=== PATIENT | male | born 1965 | race Caucasian/White ===

== ENCOUNTER 2017-07-17 14:54 | Emergency (ER) | payer MEDICARE, MEDICAID ==
[~2017-07-17] VITALS: Ht 180.3 cm; Wt 101.8 kg
[2017-07-17] MEDS ORDERED: TRIH2TAB3 PO (15:06)
[2017-07-17] MEDS ORDERED: LORA0.5T2 PO (15:06)
[2017-07-17] MEDS ORDERED: ASPI-556 PO (15:06)
[2017-07-17] MEDS ORDERED: METF500T4 PO (15:06)
[2017-07-17] MEDS ORDERED: METO-558 PO (15:06)
[2017-07-17] MEDS ORDERED: ADV250 IH (15:06)
[2017-07-17] MEDS ORDERED: HALO10 PO (15:06)
[2017-07-17] MEDS ORDERED: MIRT30 PO (15:06)
[2017-07-17] MEDS ORDERED: PRAZ2 PO (15:06)
[2017-07-17] MEDS ORDERED: GABA-529 PO (15:06)
[2017-07-17] MEDS ORDERED: AMANL PO (15:06)
[2017-07-17] MEDS ORDERED: SIMV-259 PO (15:06)
[2017-07-17] MEDS ORDERED: OMEP20 PO (15:06)
[2017-07-17 15:18] LABS: GLUCOSE,POINT OF CARE 143 MG/DL (70-110)
[2017-07-17 16:16] VITALS: BP 125/69
[2017-07-17] MEDS ORDERED: AMAN100C12 PO (16:38)
[2017-07-17] MEDS ORDERED: IBUPROFEN 600 MG TABLET PO ONE (16:45)
== END 2017-07-17 17:02 | disposition home or self-care (01) ==
LOC: EMS 14:55
DX: M79.662 Pain in left lower leg (principal); E11.9 Type 2 diabetes mellitus without complications
CPT/HCPCS: 82962; 93971; 99284

== ENCOUNTER 2018-09-30 12:55 | Inpatient (IN) | payer MEDICARE, MEDICAID ==
[~2018-09-30] VITALS: Ht 177.8 cm; Wt 79.4 kg
[~2018-09-30 12:55] MED LIST: ADV250 IH; AMAN100C12 PO; ASPI-556 PO; GABA-529 PO; HALO10 PO; LORA0.5T2 PO; METF-960 PO; METO-558 PO; MIRT30 PO; OMEP20 PO; PRAZ2 PO; SIMV-259 PO; TRIH2TAB3 PO
[2018-09-30 13:43] VITALS: BP 129/79
[2018-09-30] MEDS ORDERED: TUBERCULIN, PURIFIED PROTEIN DERIVATIVE 5 TU/0.1 ML SYG ID ONE (13:45)
[2018-09-30] MEDS ORDERED: PROMETHAZINE HCL 25 MG TABLET PO PRN (13:45)
[2018-09-30] MEDS ORDERED: GuaiFENesin/D-METHORPHAN [SUGAR-FREE] 200-20MG/10 ML SYRUP UDCUP PO PRN (13:45)
[2018-09-30] MEDS ORDERED: HydrOXYzine PAMOATE 50 MG CAPSULE PO PRN (13:45)
[2018-09-30] MEDS ORDERED: LOPERAMIDE HCL 2 MG CAPSULE PO PRN (13:45)
[2018-09-30] MEDS ORDERED: MAGNESIUM HYDROXIDE SUSPENSION 30 ML UDCUP PO PRN (13:45)
[2018-09-30 16:00] VITALS: BP 130/67
[2018-09-30] MEDS ORDERED: INSULIN LISPRO 100 UNITS/ML SQ PRN (16:45)
[2018-09-30] MEDS ORDERED: GLUCAGON,HUMAN RECOMBINANT 1 MG VIAL IM PRN (16:45)
[2018-09-30] MEDS: LORazepam 2 MG TABLET PO PRN (17:45)
[2018-09-30] MEDS: GABAPENTIN 100 MG CAPSULE PO SCH (17:47)
[2018-09-30] MEDS: THIAMINE HCL 100 MG TABLET PO SCH (17:47)
[2018-09-30] MEDS: MetFORMIN HCL 500 MG TABLET PO SCH (17:47)
[2018-09-30] MEDS: TRIHEXYPHENIDYL HCL 2 MG TABLET PO SCH (18:32)
[2018-09-30] MEDS: PRAZOSIN HCL 1 MG CAPSULE PO SCH (20:49)
[2018-09-30] MEDS: SIMVASTATIN 10 MG TABLET PO SCH (20:49)
[2018-09-30] MEDS: MIRTAZAPINE 15 MG TABLET PO SCH (20:50)
[2018-09-30] MEDS: ZOLPIDEM TARTRATE 10 MG TABLET PO PRN (20:50)
[2018-09-30] MEDS ORDERED: HALOPERIDOL 10 MG TABLET PO SCH (21:00)
[2018-10-01] MEDS: MetFORMIN HCL 500 MG TABLET PO SCH ×2 (06:34→16:44)
[2018-10-01 06:37] LABS: GLUCOMETER DEV NAME(LOC) BV3N.; GLUCOSE,POINT OF CARE 92 MG/DL (70-110)
[2018-10-01 07:02] VITALS: BP 129/75
[2018-10-01 07:52] LABS: BASOPHILS % (AUTO) 0.5 % (0.0-2.0); HEMATOCRIT 39.3 % (41-53); HEMOGLOBIN 13.1 g/dL (13.5-17.5); LYMPHOCYTES # (AUTO) 2.2 K/uL (1.0-4.8); LYMPHOCYTES % (AUTO) 36.3 % (22.0-44.0); MEAN CORPUSCULAR HEMOGLOBIN 30.4 pg (26.0-34.0); MEAN CORPUSCULAR HGB CONC 33.3 G/dL (31.0-37.0); MEAN CORPUSCULAR VOLUME 91 fL (80-100); MONOCYTES # (AUTO) 0.8 K/uL (0.1-1.0); MONOCYTES % (AUTO) 12.6 % (2.0-9.0); NEUTROPHILS # (AUTO) 2.9 K/uL (1.8-7.7); NEUTROPHILS % (AUTO) 47.6 % (40.0-70.0); PLATELET COUNT (AUTO) 141 K/uL (150-450); RED BLOOD CELL COUNT(AUTO) 4.29 MIL/uL (4.50-5.90); RED CELL DISTRIBUTION WIDTH 15.2 % (11.5-14.5)
[2018-10-01 07:58] LABS: HEMOGLOBIN A1C 5.6 % (4.5-6.2)
[2018-10-01 08:24] LABS: ALANINE AMINOTRANSFERASE 20 U/L (12-78); ALBUMIN 3.1 g/dL (3.4-5.0); ALKALINE PHOSPHATASE 78 U/L (46-116); ANION GAP 5 mmol/L (8-16); ASPARTATE AMINOTRANSFERASE 20 U/L (15-37); BILIRUBIN,TOTAL 0.5 mg/dL (0.1-1.0); CALCIUM, TOTAL 8.3 mg/dL (8.8-10.5); CARBON DIOXIDE 28 mmol/L (22-29); CHLORIDE 108 mmol/L (98-107); CHOL/HDL RATIO 2.4 (4.2-7.3); CHOLESTEROL 101 mg/dL (131-200); FREE T4 (FREE THYROXINE) 0.91 ng/dL (0.76-1.46); GLOMERULAR FILTR. RATE CALC > 60 mL/min (>60); GLUCOSE,RANDOM 79 mg/dL (70-110); HDL CHOLESTEROL 42 mg/dL (40-60); LDL CHOL (CALC.) 50 mg/dL (0-130); POTASSIUM 3.6 mmol/L (3.5-5.1); SODIUM SERUM 141 mmol/L (136-145); THYROID STIMULATING HORMONE 1.21 uIU/mL (0.36-3.74); TOTAL PROTEIN, SERUM 5.7 g/dL (6.4-8.2); TRIGLYCERIDES 47 mg/dL (15-150); UREA NITROGEN, BLOOD 13 mg/dL (7-18)
[2018-10-01 08:56] VITALS: BP 119/70
[2018-10-01] MEDS ORDERED: AMANTADINE HCL 100 MG CAPSULE PO SCH (09:00)
[2018-10-01] MEDS: ASPIRIN 81 MG CHEWABLE TABLET PO SCH (10:18)
[2018-10-01] MEDS: GABAPENTIN 100 MG CAPSULE PO SCH ×3 (10:18→16:44)
[2018-10-01] MEDS: FLUTICASONE/VILANTEROL 200-25 MCG/INH INHALER [14] IH SCH (10:18)
[2018-10-01] MEDS: FOLIC ACID 1 MG TABLET PO SCH (10:18)
[2018-10-01] MEDS: TRIHEXYPHENIDYL HCL 2 MG TABLET PO SCH (10:18)
[2018-10-01] MEDS: NALTREXONE HCL 50 MG TABLET PO SCH (10:18)
[2018-10-01] MEDS: METOPROLOL SUCCINATE 50 MG ER TABLET PO SCH (10:19)
[2018-10-01] MEDS: MULTIVITAMINS WITH MINERALS, THERAPEUTIC TABLET PO SCH (10:19)
[2018-10-01] MEDS: THIAMINE HCL 100 MG TABLET PO SCH ×2 (10:19→16:44)
[2018-10-01] MEDS: NICOTINE 21 MG/24 HOUR PATCH TD SCH (13:32)
[2018-10-01 16:00] VITALS: BP 115/66
[2018-10-01] MEDS: TRIHEXYPHENIDYL HCL 5 MG TABLET PO SCH (16:47)
[2018-10-01 17:04] LABS: GLUCOMETER DEV NAME(LOC) BV3N.; GLUCOSE,POINT OF CARE 104 MG/DL (70-110)
[2018-10-01] MEDS: PRAZOSIN HCL 1 MG CAPSULE PO SCH (21:05)
[2018-10-01] MEDS: SIMVASTATIN 10 MG TABLET PO SCH (21:05)
[2018-10-01] MEDS: HALOPERIDOL 10 MG TABLET PO SCH (21:05)
[2018-10-01] MEDS: DIVALPROEX SODIUM 500 MG ER TABLET PO SCH (21:05)
[2018-10-01] MEDS: MIRTAZAPINE 15 MG TABLET PO SCH (21:05)
[2018-10-02 04:30] VITALS: BP 118/72
[2018-10-02] MEDS: MetFORMIN HCL 500 MG TABLET PO SCH ×2 (06:49→16:51)
[2018-10-02 08:03] VITALS: BP 113/73
[2018-10-02] MEDS: ASPIRIN 81 MG CHEWABLE TABLET PO SCH (08:21)
[2018-10-02] MEDS: METOPROLOL SUCCINATE 50 MG ER TABLET PO SCH (08:21)
[2018-10-02] MEDS: NALTREXONE HCL 50 MG TABLET PO SCH (08:21)
[2018-10-02] MEDS: TRIHEXYPHENIDYL HCL 5 MG TABLET PO SCH ×3 (08:22→16:51)
[2018-10-02] MEDS: FOLIC ACID 1 MG TABLET PO SCH (08:22)
[2018-10-02] MEDS: THIAMINE HCL 100 MG TABLET PO SCH ×2 (08:22→16:51)
[2018-10-02] MEDS: MULTIVITAMINS WITH MINERALS, THERAPEUTIC TABLET PO SCH (08:22)
[2018-10-02] MEDS: GABAPENTIN 100 MG CAPSULE PO SCH ×3 (08:22→16:51)
[2018-10-02] MEDS: NICOTINE 21 MG/24 HOUR PATCH TD SCH (08:23)
[2018-10-02] MEDS: FLUTICASONE/VILANTEROL 200-25 MCG/INH INHALER [14] IH SCH (08:23)
[2018-10-02] MEDS: MAG HYDROX/AL HYDROX/SIMETH ES 30 ML SUSPENSION UDCUP PO PRN (14:55)
[2018-10-02 16:00] VITALS: BP 114/65
[2018-10-02] MEDS: LORazepam 2 MG TABLET PO PRN (16:52)
[2018-10-02 17:19] LABS: GLUCOMETER DEV NAME(LOC) BV3N.; GLUCOSE,POINT OF CARE 89 MG/DL (70-110)
[2018-10-02] MEDS: PRAZOSIN HCL 1 MG CAPSULE PO SCH (20:50)
[2018-10-02] MEDS: DIVALPROEX SODIUM 500 MG ER TABLET PO SCH (20:50)
[2018-10-02] MEDS: MIRTAZAPINE 15 MG TABLET PO SCH (20:50)
[2018-10-02] MEDS: HALOPERIDOL 10 MG TABLET PO SCH (20:50)
[2018-10-02] MEDS: SIMVASTATIN 10 MG TABLET PO SCH (20:50)
[2018-10-03 04:30] VITALS: BP 118/68
[2018-10-03 06:15] LABS: GLUCOMETER DEV NAME(LOC) BV3N.; GLUCOSE,POINT OF CARE 73 MG/DL (70-110)
[2018-10-03] MEDS: MetFORMIN HCL 500 MG TABLET PO SCH ×2 (06:26→16:22)
[2018-10-03 08:18] VITALS: BP 112/66
[2018-10-03] MEDS: GABAPENTIN 100 MG CAPSULE PO SCH ×3 (09:05→16:22)
[2018-10-03] MEDS: NALTREXONE HCL 50 MG TABLET PO SCH (09:05)
[2018-10-03] MEDS: THIAMINE HCL 100 MG TABLET PO SCH ×2 (09:05→16:22)
[2018-10-03] MEDS: TRIHEXYPHENIDYL HCL 5 MG TABLET PO SCH ×3 (09:05→16:22)
[2018-10-03] MEDS: NICOTINE 21 MG/24 HOUR PATCH TD SCH (09:05)
[2018-10-03] MEDS: FOLIC ACID 1 MG TABLET PO SCH (09:05)
[2018-10-03] MEDS: METOPROLOL SUCCINATE 50 MG ER TABLET PO SCH (09:05)
[2018-10-03] MEDS: ASPIRIN 81 MG CHEWABLE TABLET PO SCH (09:05)
[2018-10-03] MEDS: MULTIVITAMINS WITH MINERALS, THERAPEUTIC TABLET PO SCH (09:05)
[2018-10-03] MEDS: FLUTICASONE/VILANTEROL 200-25 MCG/INH INHALER [14] IH SCH (09:06)
[2018-10-03 16:14] VITALS: BP 110/61
[2018-10-03] MEDS: LORazepam 2 MG TABLET PO PRN (16:22)
[2018-10-03] MEDS: HALOPERIDOL 5 MG TABLET PO PRN (16:22)
[2018-10-03 17:09] LABS: GLUCOMETER DEV NAME(LOC) BV3N.; GLUCOSE,POINT OF CARE 114 MG/DL (70-110)
[2018-10-03] MEDS: HALOPERIDOL 10 MG TABLET PO SCH (20:20)
[2018-10-03] MEDS: DIVALPROEX SODIUM 500 MG ER TABLET PO SCH (20:20)
[2018-10-03] MEDS: MIRTAZAPINE 15 MG TABLET PO SCH (20:20)
[2018-10-03] MEDS: PRAZOSIN HCL 1 MG CAPSULE PO SCH (20:20)
[2018-10-03] MEDS: SIMVASTATIN 10 MG TABLET PO SCH (20:21)
[2018-10-03] MEDS: ZOLPIDEM TARTRATE 10 MG TABLET PO PRN (20:21)
[2018-10-03] MEDS: MAG HYDROX/AL HYDROX/SIMETH ES 30 ML SUSPENSION UDCUP PO PRN (21:01)
[2018-10-04 06:20] VITALS: BP 101/69
[2018-10-04] MEDS: MetFORMIN HCL 500 MG TABLET PO SCH ×2 (06:37→16:44)
[2018-10-04 08:41] VITALS: BP 112/79
[2018-10-04] MEDS: NICOTINE 21 MG/24 HOUR PATCH TD SCH (08:52)
[2018-10-04] MEDS: THIAMINE HCL 100 MG TABLET PO SCH ×2 (08:53→16:44)
[2018-10-04] MEDS: MULTIVITAMINS WITH MINERALS, THERAPEUTIC TABLET PO SCH (08:53)
[2018-10-04] MEDS: FOLIC ACID 1 MG TABLET PO SCH (08:53)
[2018-10-04] MEDS: TRIHEXYPHENIDYL HCL 5 MG TABLET PO SCH ×3 (08:53→16:44)
[2018-10-04] MEDS: GABAPENTIN 100 MG CAPSULE PO SCH ×3 (08:53→16:44)
[2018-10-04] MEDS: NALTREXONE HCL 50 MG TABLET PO SCH (08:53)
[2018-10-04] MEDS: ASPIRIN 81 MG CHEWABLE TABLET PO SCH (08:53)
[2018-10-04] MEDS: METOPROLOL SUCCINATE 50 MG ER TABLET PO SCH (08:54)
[2018-10-04] MEDS: FLUTICASONE/VILANTEROL 200-25 MCG/INH INHALER [14] IH SCH (08:54)
[2018-10-04 13:50] VITALS: BP 112/65
[2018-10-04] MEDS: ACETAMINOPHEN 325 MG TABLET PO PRN (13:50)
[2018-10-04 16:00] VITALS: BP 114/67
[2018-10-04 16:54] LABS: GLUCOMETER DEV NAME(LOC) BV3N.; GLUCOSE,POINT OF CARE 95 MG/DL (70-110)
[2018-10-04] MEDS: LORazepam 2 MG TABLET PO PRN (18:13)
[2018-10-04] MEDS: MIRTAZAPINE 15 MG TABLET PO SCH (20:03)
[2018-10-04] MEDS: HALOPERIDOL 10 MG TABLET PO SCH (20:03)
[2018-10-04] MEDS: DIVALPROEX SODIUM 500 MG ER TABLET PO SCH (20:03)
[2018-10-04] MEDS: PRAZOSIN HCL 1 MG CAPSULE PO SCH (20:04)
[2018-10-04] MEDS: SIMVASTATIN 10 MG TABLET PO SCH (20:04)
[2018-10-05 06:09] LABS: GLUCOMETER DEV NAME(LOC) BV3N.; GLUCOSE,POINT OF CARE 78 MG/DL (70-110)
[2018-10-05] MEDS: MetFORMIN HCL 500 MG TABLET PO SCH ×2 (06:18→16:07)
[2018-10-05 07:10] VITALS: BP 110/65
[2018-10-05] MEDS: FOLIC ACID 1 MG TABLET PO SCH (09:04)
[2018-10-05] MEDS: FLUTICASONE/VILANTEROL 200-25 MCG/INH INHALER [14] IH SCH (09:04)
[2018-10-05] MEDS: NALTREXONE HCL 50 MG TABLET PO SCH (09:04)
[2018-10-05] MEDS: ASPIRIN 81 MG CHEWABLE TABLET PO SCH (09:04)
[2018-10-05] MEDS: GABAPENTIN 100 MG CAPSULE PO SCH ×3 (09:04→16:07)
[2018-10-05] MEDS: TRIHEXYPHENIDYL HCL 5 MG TABLET PO SCH ×3 (09:04→16:07)
[2018-10-05] MEDS: METOPROLOL SUCCINATE 50 MG ER TABLET PO SCH (09:04)
[2018-10-05] MEDS: MULTIVITAMINS WITH MINERALS, THERAPEUTIC TABLET PO SCH (09:05)
[2018-10-05] MEDS: NICOTINE 21 MG/24 HOUR PATCH TD SCH (09:05)
[2018-10-05] MEDS: LORazepam 2 MG TABLET PO PRN ×2 (09:05→16:07)
[2018-10-05] MEDS: THIAMINE HCL 100 MG TABLET PO SCH ×2 (09:05→16:07)
[2018-10-05 09:28] VITALS: BP 113/66
[2018-10-05] MEDS: ACETAMINOPHEN 325 MG TABLET PO PRN (10:09)
[2018-10-05] MEDS: HALOPERIDOL 5 MG TABLET PO PRN (16:07)
[2018-10-05 16:25] VITALS: BP 108/65
[2018-10-05 16:29] LABS: GLUCOMETER DEV NAME(LOC) BV3N.; GLUCOSE,POINT OF CARE 116 MG/DL (70-110)
[2018-10-05] MEDS: SIMVASTATIN 10 MG TABLET PO SCH (20:16)
[2018-10-05] MEDS: DIVALPROEX SODIUM 500 MG ER TABLET PO SCH (20:16)
[2018-10-05] MEDS: HALOPERIDOL 10 MG TABLET PO SCH (20:16)
[2018-10-05] MEDS: PRAZOSIN HCL 1 MG CAPSULE PO SCH (20:16)
[2018-10-05] MEDS: MIRTAZAPINE 15 MG TABLET PO SCH (20:16)
[2018-10-05] MEDS: ZOLPIDEM TARTRATE 10 MG TABLET PO PRN (20:16)
[2018-10-05] MEDS: MAG HYDROX/AL HYDROX/SIMETH ES 30 ML SUSPENSION UDCUP PO PRN (21:25)
[2018-10-06 06:01] VITALS: BP 116/68
[2018-10-06] MEDS: MetFORMIN HCL 500 MG TABLET PO SCH ×2 (06:24→16:23)
[2018-10-06 06:29] LABS: GLUCOMETER DEV NAME(LOC) BV3N.; GLUCOSE,POINT OF CARE 84 MG/DL (70-110)
[2018-10-06 08:26] VITALS: BP 102/62
[2018-10-06] MEDS: NALTREXONE HCL 50 MG TABLET PO SCH (08:33)
[2018-10-06] MEDS: MULTIVITAMINS WITH MINERALS, THERAPEUTIC TABLET PO SCH (08:33)
[2018-10-06] MEDS: TRIHEXYPHENIDYL HCL 5 MG TABLET PO SCH ×3 (08:33→16:23)
[2018-10-06] MEDS: METOPROLOL SUCCINATE 50 MG ER TABLET PO SCH (08:34)
[2018-10-06] MEDS: FLUTICASONE/VILANTEROL 200-25 MCG/INH INHALER [14] IH SCH (08:34)
[2018-10-06] MEDS: GABAPENTIN 100 MG CAPSULE PO SCH (08:34)
[2018-10-06] MEDS: THIAMINE HCL 100 MG TABLET PO SCH ×2 (08:34→16:23)
[2018-10-06] MEDS: NICOTINE 21 MG/24 HOUR PATCH TD SCH (08:34)
[2018-10-06] MEDS: FOLIC ACID 1 MG TABLET PO SCH (08:34)
[2018-10-06] MEDS: ASPIRIN 81 MG CHEWABLE TABLET PO SCH (08:34)
[2018-10-06] MEDS: HALOPERIDOL 5 MG TABLET PO PRN (16:23)
[2018-10-06] MEDS: LORazepam 2 MG TABLET PO PRN ×2 (16:23→20:25)
[2018-10-06 16:40] LABS: GLUCOMETER DEV NAME(LOC) BV3N.; GLUCOSE,POINT OF CARE 107 MG/DL (70-110)
[2018-10-06 16:48] VITALS: BP 103/72
[2018-10-06] MEDS: SIMVASTATIN 10 MG TABLET PO SCH (20:20)
[2018-10-06] MEDS: PRAZOSIN HCL 1 MG CAPSULE PO SCH (20:20)
[2018-10-06] MEDS: HALOPERIDOL 10 MG TABLET PO SCH (20:20)
[2018-10-06] MEDS: GABAPENTIN 300 MG CAPSULE PO SCH (20:20)
[2018-10-06] MEDS: DIVALPROEX SODIUM 500 MG ER TABLET PO SCH (20:21)
[2018-10-06] MEDS: MIRTAZAPINE 15 MG TABLET PO SCH (20:22)
[2018-10-06] MEDS: ZOLPIDEM TARTRATE 10 MG TABLET PO PRN (20:25)
[2018-10-07 06:09] LABS: GLUCOMETER DEV NAME(LOC) BV3N.; GLUCOSE,POINT OF CARE 90 MG/DL (70-110)
[2018-10-07] MEDS: MetFORMIN HCL 500 MG TABLET PO SCH ×2 (06:09→17:25)
[2018-10-07 06:48] VITALS: BP 104/70
[2018-10-07 08:11] VITALS: BP 110/70
[2018-10-07] MEDS: FLUTICASONE/VILANTEROL 200-25 MCG/INH INHALER [14] IH SCH (08:28)
[2018-10-07] MEDS: ASPIRIN 81 MG CHEWABLE TABLET PO SCH (08:28)
[2018-10-07] MEDS: NALTREXONE HCL 50 MG TABLET PO SCH (08:28)
[2018-10-07] MEDS: METOPROLOL SUCCINATE 50 MG ER TABLET PO SCH (08:28)
[2018-10-07] MEDS: FOLIC ACID 1 MG TABLET PO SCH (08:28)
[2018-10-07] MEDS: TRIHEXYPHENIDYL HCL 5 MG TABLET PO SCH ×3 (08:28→17:25)
[2018-10-07] MEDS: GABAPENTIN 100 MG CAPSULE PO SCH (08:28)
[2018-10-07] MEDS: THIAMINE HCL 100 MG TABLET PO SCH ×2 (08:28→17:25)
[2018-10-07] MEDS: MULTIVITAMINS WITH MINERALS, THERAPEUTIC TABLET PO SCH (08:28)
[2018-10-07] MEDS: NICOTINE 21 MG/24 HOUR PATCH TD SCH (08:29)
[2018-10-07] MEDS: MAG HYDROX/AL HYDROX/SIMETH ES 30 ML SUSPENSION UDCUP PO PRN (16:44)
[2018-10-07 17:25] VITALS: BP 110/66
[2018-10-07] MEDS: LORazepam 2 MG TABLET PO PRN (17:25)
[2018-10-07] MEDS: HALOPERIDOL 5 MG TABLET PO PRN (17:25)
[2018-10-07] MEDS: DIVALPROEX SODIUM 500 MG ER TABLET PO SCH (20:25)
[2018-10-07] MEDS: GABAPENTIN 300 MG CAPSULE PO SCH (20:26)
[2018-10-07] MEDS: MIRTAZAPINE 15 MG TABLET PO SCH (20:26)
[2018-10-07] MEDS: PRAZOSIN HCL 1 MG CAPSULE PO SCH (20:26)
[2018-10-07] MEDS: HALOPERIDOL 10 MG TABLET PO SCH (20:26)
[2018-10-07] MEDS: SIMVASTATIN 10 MG TABLET PO SCH (20:26)
[2018-10-08 05:48] VITALS: BP 118/64
[2018-10-08] MEDS: MetFORMIN HCL 500 MG TABLET PO SCH ×2 (06:24→16:36)
[2018-10-08 06:30] LABS: GLUCOMETER DEV NAME(LOC) BV3N.; GLUCOSE,POINT OF CARE 76 MG/DL (70-110)
[2018-10-08 08:12] VITALS: BP 110/63
[2018-10-08] MEDS: TRIHEXYPHENIDYL HCL 5 MG TABLET PO SCH ×3 (08:20→16:36)
[2018-10-08] MEDS: THIAMINE HCL 100 MG TABLET PO SCH ×2 (08:20→16:36)
[2018-10-08] MEDS: FOLIC ACID 1 MG TABLET PO SCH (08:20)
[2018-10-08] MEDS: MULTIVITAMINS WITH MINERALS, THERAPEUTIC TABLET PO SCH (08:20)
[2018-10-08] MEDS: NALTREXONE HCL 50 MG TABLET PO SCH (08:21)
[2018-10-08] MEDS: GABAPENTIN 100 MG CAPSULE PO SCH (08:21)
[2018-10-08] MEDS: FLUTICASONE/VILANTEROL 200-25 MCG/INH INHALER [14] IH SCH (08:21)
[2018-10-08] MEDS: ASPIRIN 81 MG CHEWABLE TABLET PO SCH (08:21)
[2018-10-08] MEDS: METOPROLOL SUCCINATE 50 MG ER TABLET PO SCH (08:22)
[2018-10-08] MEDS: NICOTINE 21 MG/24 HOUR PATCH TD SCH (08:51)
[2018-10-08 16:00] VITALS: BP 113/81
[2018-10-08] MEDS ORDERED: GABA-531 PO (16:38)
[2018-10-08] MEDS ORDERED: NALT50TA PO (16:38)
[2018-10-08] MEDS ORDERED: HALO10 PO (16:38)
[2018-10-08] MEDS ORDERED: MIRT15 PO (16:38)
[2018-10-08] MEDS ORDERED: TRIH5TAB2 PO (16:38)
[2018-10-08] MEDS ORDERED: PRAZ1 PO (16:38)
[2018-10-08] MEDS ORDERED: DIVA500T52 PO (16:38)
[2018-10-08 16:49] LABS: GLUCOMETER DEV NAME(LOC) BV3N.; GLUCOSE,POINT OF CARE 163 MG/DL (70-110)
[2018-10-08] MEDS: LORazepam 2 MG TABLET PO PRN (18:14)
[2018-10-08] MEDS: MAG HYDROX/AL HYDROX/SIMETH ES 30 ML SUSPENSION UDCUP PO PRN (18:38)
[2018-10-08] MEDS: HALOPERIDOL 10 MG TABLET PO SCH (20:18)
[2018-10-08] MEDS: DIVALPROEX SODIUM 500 MG ER TABLET PO SCH (20:18)
[2018-10-08] MEDS: GABAPENTIN 300 MG CAPSULE PO SCH (20:18)
[2018-10-08] MEDS: PRAZOSIN HCL 1 MG CAPSULE PO SCH (20:18)
[2018-10-08] MEDS: SIMVASTATIN 10 MG TABLET PO SCH (20:19)
[2018-10-08] MEDS: MIRTAZAPINE 15 MG TABLET PO SCH (20:19)
[2018-10-09 06:51] VITALS: BP 101/63
[2018-10-09] MEDS: MetFORMIN HCL 500 MG TABLET PO SCH (06:56)
[2018-10-09 08:14] VITALS: BP 109/72
[2018-10-09] MEDS ORDERED: HALO10 PO (08:26)
[2018-10-09] MEDS: METOPROLOL SUCCINATE 50 MG ER TABLET PO SCH (08:27)
[2018-10-09] MEDS: FOLIC ACID 1 MG TABLET PO SCH (08:27)
[2018-10-09] MEDS: GABAPENTIN 100 MG CAPSULE PO SCH (08:27)
[2018-10-09] MEDS: MULTIVITAMINS WITH MINERALS, THERAPEUTIC TABLET PO SCH (08:27)
[2018-10-09] MEDS: ASPIRIN 81 MG CHEWABLE TABLET PO SCH (08:27)
[2018-10-09] MEDS: TRIHEXYPHENIDYL HCL 5 MG TABLET PO SCH (08:27)
[2018-10-09] MEDS: THIAMINE HCL 100 MG TABLET PO SCH (08:29)
[2018-10-09] MEDS ORDERED: GABA-531 PO (08:32)
[2018-10-09] MEDS ORDERED: FLUT1BLS IH (08:34)
[2018-10-09] MEDS: NALTREXONE HCL 50 MG TABLET PO SCH (09:03)
[2018-10-09] MEDS: FLUTICASONE/VILANTEROL 200-25 MCG/INH INHALER [14] IH SCH (09:04)
[2018-10-09] MEDS: NICOTINE 21 MG/24 HOUR PATCH TD SCH (09:15)
== END 2018-10-09 10:00 | disposition home or self-care (01) | DRG 885 ==
LOC: B3A 14:51
PROVIDERS: ADMIT Psychiatry & Neurology Psychiatry; ATTEND Psychiatry & Neurology Psychiatry
DX: F25.9 Schizoaffective disorder, unspecified (principal); R45.851 Suicidal ideations; K21.9 Gastro-esophageal reflux disease without esophagitis; J44.9 Chronic obstructive pulmonary disease, unspecified; E78.5 Hyperlipidemia, unspecified; E11.9 Type 2 diabetes mellitus without complications; E78.00 Pure hypercholesterolemia, unspecified; F17.210 Nicotine dependence, cigarettes, uncomplicated; F32.9 Major depressive disorder, single episode, unspecified; F60.0 Paranoid personality disorder; G89.29 Other chronic pain; I10 Essential (primary) hypertension; R45.850 Homicidal ideations; Z79.84 Long term (current) use of oral hypoglycemic drugs; Z65.3 Problems related to other legal circumstances; Z91.19 Patient's noncompliance with other medical treatment and regimen; Z79.899 Other long term (current) drug therapy
CPT/HCPCS: 80173; 83036; 84439; 84443; 86592

== ENCOUNTER → 2019-03-03 | Outpatient (CLI) | payer MEDICARE, MEDICAID ==
[~2019-03-03] MED LIST changes: -ADV250 IH; -AMAN100C12 PO; +DIVA500T52 PO; +FLUT1BLS IH; -GABA-529 PO; +GABA-531 PO; -LORA0.5T2 PO; +MIRT15 PO; -MIRT30 PO; +NALT50TA PO; +NALT50TA6 PO; -OMEP20 PO; +PRAZ1 PO; -PRAZ2 PO; -TRIH2TAB3 PO; +TRIH5TAB2 PO
== END | disposition home or self-care (01) ==
LOC: LABMN 13:00
PROVIDERS: ATTEND Psychiatry & Neurology Psychiatry
DX: F25.9 Schizoaffective disorder, unspecified (principal)

== ENCOUNTER 2019-03-05 14:15 | Inpatient (IN) | payer MEDICARE, MEDICAID ==
[~2019-03-05 14:15] MED LIST changes: -NALT50TA6 PO
[2019-03-05 14:18] VITALS: BP 121/73
[2019-03-05 14:25] VITALS: BP 127/60
[2019-03-05] MEDS ORDERED: DIVA500T52 PO (15:04)
[2019-03-05] MEDS ORDERED: PRAZ1 PO (15:07)
[2019-03-05] MEDS ORDERED: MIRT15 PO (15:07)
[2019-03-05] MEDS ORDERED: TRIH5TAB2 PO (15:07)
[2019-03-05] MEDS ORDERED: NALT50TA6 PO (15:07)
[2019-03-05] MEDS ORDERED: PNEUMOCOCCAL VACCINE POLYVALENT 0.5 ML VIAL [PPSV23] IM ONE (15:15)
[2019-03-05 15:20] VITALS: BP 127/60
[2019-03-05] MEDS ORDERED: HALOPERIDOL 5 MG TABLET PO PRN (17:00)
[2019-03-05] MEDS ORDERED: LOPERAMIDE HCL 2 MG CAPSULE PO PRN (17:00)
[2019-03-05] MEDS ORDERED: ZOLPIDEM TARTRATE 10 MG TABLET PO PRN (17:00)
[2019-03-05] MEDS ORDERED: MAGNESIUM HYDROXIDE SUSPENSION 30 ML UDCUP PO PRN (17:00)
[2019-03-05] MEDS ORDERED: HydrOXYzine PAMOATE 50 MG CAPSULE PO PRN (17:00)
[2019-03-05] MEDS ORDERED: GuaiFENesin/D-METHORPHAN [SUGAR-FREE] 200-20MG/10 ML SYRUP UDCUP PO PRN (17:00)
[2019-03-05] MEDS ORDERED: PROMETHAZINE HCL 25 MG TABLET PO PRN (17:00)
[2019-03-05] MEDS ORDERED: LORazepam 2 MG TABLET PO PRN (17:00)
[2019-03-05] MEDS ORDERED: ACETAMINOPHEN 325 MG TABLET PO PRN (17:00)
[2019-03-05 17:27] VITALS: BP 104/60
[2019-03-05] MEDS ORDERED: INSULIN LISPRO 100 UNITS/ML SQ PRN (17:30)
[2019-03-05] MEDS ORDERED: GLUCAGON,HUMAN RECOMBINANT 1 MG VIAL IM PRN (17:30)
[2019-03-05] MEDS: THIAMINE HCL 100 MG TABLET PO SCH (18:54)
[2019-03-05] MEDS: TRIHEXYPHENIDYL HCL 5 MG TABLET PO SCH (18:54)
[2019-03-05] MEDS: MetFORMIN HCL 500 MG TABLET PO SCH (18:54)
[2019-03-05] MEDS: NICOTINE 21 MG/24 HOUR PATCH TD SCH (19:43)
[2019-03-05] MEDS: SIMVASTATIN 10 MG TABLET PO SCH (20:17)
[2019-03-05] MEDS: HALOPERIDOL 10 MG TABLET PO SCH (20:17)
[2019-03-05] MEDS: DIVALPROEX SODIUM 500 MG ER TABLET PO SCH (20:17)
[2019-03-05] MEDS: GABAPENTIN 300 MG CAPSULE PO SCH (20:17)
[2019-03-05] MEDS: MIRTAZAPINE 15 MG TABLET PO SCH (20:19)
[2019-03-05] MEDS ORDERED: PRAZOSIN HCL 1 MG CAPSULE PO SCH (21:00)
[2019-03-05] MEDS ORDERED: MIRTAZAPINE 15 MG TABLET PO SCH (21:00)
[2019-03-06] VITALS (7 sets, daily range): BP systolic 101–110; BP diastolic 59–65
[2019-03-06 06:34] LABS: GLUCOMETER DEV NAME(LOC) BV3S.; GLUCOSE,POINT OF CARE 72 MG/DL (70-110)
[2019-03-06] MEDS: MetFORMIN HCL 500 MG TABLET PO SCH ×2 (06:42→16:42)
[2019-03-06 08:01] LABS: BASOPHILS % (AUTO) 0.5 % (0.0-2.0); EOSINOPHILS % (AUTO) 1.6 % (1.0-6.0); HEMATOCRIT 45.7 % (41-53); HEMOGLOBIN 15.5 g/dL (13.5-17.5); LYMPHOCYTES # (AUTO) 3.3 K/uL (1.0-4.8); LYMPHOCYTES % (AUTO) 53.9 % (22.0-44.0); MEAN CORPUSCULAR HEMOGLOBIN 32.9 pg (26.0-34.0); MEAN CORPUSCULAR VOLUME 97 fL (80-100); MONOCYTES # (AUTO) 0.5 K/uL (0.1-1.0); MONOCYTES % (AUTO) 8.7 % (2.0-9.0); NEUTROPHILS # (AUTO) 2.1 K/uL (1.8-7.7); NEUTROPHILS % (AUTO) 35.3 % (40.0-70.0); PLATELET COUNT (AUTO) 157 K/uL (150-450); RED BLOOD CELL COUNT(AUTO) 4.71 MIL/uL (4.50-5.90); RED CELL DISTRIBUTION WIDTH 13.9 % (11.5-14.5)
[2019-03-06 08:15] LABS: HEMOGLOBIN A1C 5.4 % (4.5-6.2)
[2019-03-06] MEDS: METOPROLOL SUCCINATE 50 MG ER TABLET PO SCH (09:00)
[2019-03-06] MEDS: FLUTICASONE/VILANTEROL 200-25 MCG/INH INHALER [14] IH SCH ×2 (09:00→11:43)
[2019-03-06] MEDS: FOLIC ACID 1 MG TABLET PO SCH (09:08)
[2019-03-06] MEDS: TRIHEXYPHENIDYL HCL 5 MG TABLET PO SCH ×3 (09:08→16:42)
[2019-03-06] MEDS: MULTIVITAMINS WITH MINERALS, THERAPEUTIC TABLET PO SCH (09:08)
[2019-03-06] MEDS: ASPIRIN 81 MG CHEWABLE TABLET PO SCH (09:08)
[2019-03-06] MEDS: NALTREXONE HCL 50 MG TABLET PO SCH (09:08)
[2019-03-06] MEDS: THIAMINE HCL 100 MG TABLET PO SCH ×2 (09:08→16:42)
[2019-03-06] MEDS: NICOTINE 21 MG/24 HOUR PATCH TD SCH (09:09)
[2019-03-06 17:35] LABS: GLUCOMETER DEV NAME(LOC) BV3S.; GLUCOSE,POINT OF CARE 92 MG/DL (70-110)
[2019-03-06] MEDS: HALOPERIDOL 10 MG TABLET PO SCH (20:16)
[2019-03-06] MEDS: PRAZOSIN HCL 1 MG CAPSULE PO SCH (20:16)
[2019-03-06] MEDS: SIMVASTATIN 10 MG TABLET PO SCH (20:16)
[2019-03-06] MEDS: GABAPENTIN 300 MG CAPSULE PO SCH (20:16)
[2019-03-06] MEDS: DIVALPROEX SODIUM 500 MG ER TABLET PO SCH (20:17)
[2019-03-06] MEDS: MIRTAZAPINE 15 MG TABLET PO SCH (20:17)
[2019-03-06] MEDS: MAG HYDROX/AL HYDROX/SIMETH ES 30 ML SUSPENSION UDCUP PO PRN (20:50)
[2019-03-07 06:00] VITALS: BP 105/68
[2019-03-07 06:29] LABS: GLUCOMETER DEV NAME(LOC) BV3S.; GLUCOSE,POINT OF CARE 64 MG/DL (70-110)
[2019-03-07 06:29] LABS: GLUCOMETER DEV NAME(LOC) BV3S.; GLUCOSE,POINT OF CARE 101 MG/DL (70-110)
[2019-03-07] MEDS: MetFORMIN HCL 500 MG TABLET PO SCH ×2 (06:56→17:06)
[2019-03-07 08:00] VITALS: BP 108/66
[2019-03-07] MEDS: METOPROLOL SUCCINATE 50 MG ER TABLET PO SCH (09:05)
[2019-03-07] MEDS: FLUTICASONE/VILANTEROL 200-25 MCG/INH INHALER [14] IH SCH (09:05)
[2019-03-07] MEDS: NICOTINE 21 MG/24 HOUR PATCH TD SCH (09:06)
[2019-03-07] MEDS: FOLIC ACID 1 MG TABLET PO SCH (09:06)
[2019-03-07] MEDS: GABAPENTIN 300 MG CAPSULE PO SCH ×4 (09:06→20:50)
[2019-03-07] MEDS: NALTREXONE HCL 50 MG TABLET PO SCH (09:06)
[2019-03-07] MEDS: ASPIRIN 81 MG CHEWABLE TABLET PO SCH (09:06)
[2019-03-07] MEDS: THIAMINE HCL 100 MG TABLET PO SCH ×2 (09:06→17:06)
[2019-03-07] MEDS: MULTIVITAMINS WITH MINERALS, THERAPEUTIC TABLET PO SCH (09:06)
[2019-03-07] MEDS: TRIHEXYPHENIDYL HCL 5 MG TABLET PO SCH ×3 (09:09→17:06)
[2019-03-07 16:51] VITALS: BP 104/62
[2019-03-07] MEDS: HALOPERIDOL 10 MG TABLET PO SCH (20:49)
[2019-03-07] MEDS: SIMVASTATIN 10 MG TABLET PO SCH (20:50)
[2019-03-07] MEDS: MIRTAZAPINE 15 MG TABLET PO SCH (20:50)
[2019-03-07] MEDS: DIVALPROEX SODIUM 500 MG ER TABLET PO SCH (20:50)
[2019-03-07] MEDS: PRAZOSIN HCL 1 MG CAPSULE PO SCH (20:50)
[2019-03-08 06:29] VITALS: BP 124/71
[2019-03-08] MEDS: MetFORMIN HCL 500 MG TABLET PO SCH ×2 (06:37→17:08)
[2019-03-08 06:54] LABS: GLUCOMETER DEV NAME(LOC) BV2X.; GLUCOSE,POINT OF CARE 67 MG/DL (70-110)
[2019-03-08 08:22] VITALS: BP 126/66
[2019-03-08] MEDS: ASPIRIN 81 MG CHEWABLE TABLET PO SCH (09:05)
[2019-03-08] MEDS: MULTIVITAMINS WITH MINERALS, THERAPEUTIC TABLET PO SCH (09:05)
[2019-03-08] MEDS: THIAMINE HCL 100 MG TABLET PO SCH ×2 (09:05→17:07)
[2019-03-08] MEDS: GABAPENTIN 300 MG CAPSULE PO SCH ×4 (09:05→20:13)
[2019-03-08] MEDS: METOPROLOL SUCCINATE 50 MG ER TABLET PO SCH (09:05)
[2019-03-08] MEDS: NICOTINE 21 MG/24 HOUR PATCH TD SCH (09:05)
[2019-03-08] MEDS: TRIHEXYPHENIDYL HCL 5 MG TABLET PO SCH ×3 (09:05→17:08)
[2019-03-08] MEDS: NALTREXONE HCL 50 MG TABLET PO SCH (09:05)
[2019-03-08] MEDS: FOLIC ACID 1 MG TABLET PO SCH (09:05)
[2019-03-08] MEDS: FLUTICASONE/VILANTEROL 200-25 MCG/INH INHALER [14] IH SCH (09:07)
[2019-03-08 16:19] VITALS: BP 100/60
[2019-03-08 16:44] LABS: GLUCOMETER DEV NAME(LOC) BV2X.; GLUCOSE,POINT OF CARE 95 MG/DL (70-110)
[2019-03-08 20:13] VITALS: BP 112/62
[2019-03-08] MEDS: MIRTAZAPINE 15 MG TABLET PO SCH (20:13)
[2019-03-08] MEDS: SIMVASTATIN 10 MG TABLET PO SCH (20:13)
[2019-03-08] MEDS: HALOPERIDOL 10 MG TABLET PO SCH (20:13)
[2019-03-08] MEDS: DIVALPROEX SODIUM 500 MG ER TABLET PO SCH (20:13)
[2019-03-08] MEDS: PRAZOSIN HCL 1 MG CAPSULE PO SCH (20:13)
[2019-03-09 04:35] VITALS: BP 101/62
[2019-03-09] MEDS: MetFORMIN HCL 500 MG TABLET PO SCH ×2 (06:53→16:55)
[2019-03-09 08:24] VITALS: BP 110/65
[2019-03-09] MEDS: MULTIVITAMINS WITH MINERALS, THERAPEUTIC TABLET PO SCH (08:29)
[2019-03-09] MEDS: NICOTINE 21 MG/24 HOUR PATCH TD SCH (08:29)
[2019-03-09] MEDS: METOPROLOL SUCCINATE 50 MG ER TABLET PO SCH (08:29)
[2019-03-09] MEDS: THIAMINE HCL 100 MG TABLET PO SCH ×2 (08:29→16:55)
[2019-03-09] MEDS: ASPIRIN 81 MG CHEWABLE TABLET PO SCH (08:29)
[2019-03-09] MEDS: FOLIC ACID 1 MG TABLET PO SCH (08:29)
[2019-03-09] MEDS: TRIHEXYPHENIDYL HCL 5 MG TABLET PO SCH ×3 (08:29→16:55)
[2019-03-09] MEDS: GABAPENTIN 300 MG CAPSULE PO SCH ×4 (08:29→20:03)
[2019-03-09] MEDS: NALTREXONE HCL 50 MG TABLET PO SCH (08:29)
[2019-03-09] MEDS: FLUTICASONE/VILANTEROL 200-25 MCG/INH INHALER [14] IH SCH (08:34)
[2019-03-09 16:04] VITALS: BP 101/62
[2019-03-09] MEDS: MAG HYDROX/AL HYDROX/SIMETH ES 30 ML SUSPENSION UDCUP PO PRN (16:27)
[2019-03-09 16:49] LABS: GLUCOMETER DEV NAME(LOC) BV2X.; GLUCOSE,POINT OF CARE 117 MG/DL (70-110)
[2019-03-09 20:00] VITALS: BP 95/60
[2019-03-09] MEDS: DIVALPROEX SODIUM 500 MG ER TABLET PO SCH (20:03)
[2019-03-09] MEDS: SIMVASTATIN 10 MG TABLET PO SCH (20:03)
[2019-03-09] MEDS: MIRTAZAPINE 15 MG TABLET PO SCH (20:03)
[2019-03-09] MEDS: HALOPERIDOL 10 MG TABLET PO SCH (20:03)
[2019-03-09] MEDS: PRAZOSIN HCL 1 MG CAPSULE PO SCH (20:05)
[2019-03-10 00:22] VITALS: BP 109/63
[2019-03-10 06:59] LABS: GLUCOMETER DEV NAME(LOC) BV2X.; GLUCOSE,POINT OF CARE 83 MG/DL (70-110)
[2019-03-10] MEDS: MetFORMIN HCL 500 MG TABLET PO SCH ×2 (07:01→16:36)
[2019-03-10] MEDS: FOLIC ACID 1 MG TABLET PO SCH (08:52)
[2019-03-10] MEDS: GABAPENTIN 300 MG CAPSULE PO SCH ×4 (08:52→20:55)
[2019-03-10] MEDS: MULTIVITAMINS WITH MINERALS, THERAPEUTIC TABLET PO SCH (08:52)
[2019-03-10] MEDS: ASPIRIN 81 MG CHEWABLE TABLET PO SCH (08:52)
[2019-03-10 08:53] VITALS: BP 105/50
[2019-03-10] MEDS: THIAMINE HCL 100 MG TABLET PO SCH ×2 (08:53→16:36)
[2019-03-10] MEDS: NALTREXONE HCL 50 MG TABLET PO SCH (08:53)
[2019-03-10] MEDS: FLUTICASONE/VILANTEROL 200-25 MCG/INH INHALER [14] IH SCH (08:54)
[2019-03-10] MEDS: METOPROLOL SUCCINATE 50 MG ER TABLET PO SCH (09:00)
[2019-03-10] MEDS: NICOTINE 21 MG/24 HOUR PATCH TD SCH (09:04)
[2019-03-10] MEDS: TRIHEXYPHENIDYL HCL 5 MG TABLET PO SCH ×3 (09:28→16:36)
[2019-03-10] MEDS ORDERED: TUBERCULIN, PURIFIED PROTEIN DERIVATIVE 5 TU/0.1 ML SYRINGE ID ONE (15:15)
[2019-03-10 16:09] VITALS: BP 109/62
[2019-03-10 16:55] LABS: GLUCOMETER DEV NAME(LOC) BV2X.; GLUCOSE,POINT OF CARE 99 MG/DL (70-110)
[2019-03-10] MEDS: MIRTAZAPINE 15 MG TABLET PO SCH (20:50)
[2019-03-10] MEDS: DIVALPROEX SODIUM 500 MG ER TABLET PO SCH (20:50)
[2019-03-10] MEDS: SIMVASTATIN 10 MG TABLET PO SCH (20:51)
[2019-03-10] MEDS: HALOPERIDOL 10 MG TABLET PO SCH (20:51)
[2019-03-11 06:15] VITALS: BP 110/68
[2019-03-11 06:35] LABS: GLUCOMETER DEV NAME(LOC) BV2X.; GLUCOSE,POINT OF CARE 79 MG/DL (70-110)
[2019-03-11] MEDS: MetFORMIN HCL 500 MG TABLET PO SCH ×2 (06:55→16:51)
[2019-03-11 08:09] VITALS: BP 104/55
[2019-03-11] MEDS: ASPIRIN 81 MG CHEWABLE TABLET PO SCH ×2 (09:00→09:08)
[2019-03-11] MEDS: METOPROLOL SUCCINATE 50 MG ER TABLET PO SCH ×2 (09:00→09:09)
[2019-03-11 09:01] VITALS: BP 106/62
[2019-03-11] MEDS: THIAMINE HCL 100 MG TABLET PO SCH ×2 (09:08→16:52)
[2019-03-11] MEDS: GABAPENTIN 300 MG CAPSULE PO SCH ×4 (09:08→20:09)
[2019-03-11] MEDS: MULTIVITAMINS WITH MINERALS, THERAPEUTIC TABLET PO SCH (09:08)
[2019-03-11] MEDS: FOLIC ACID 1 MG TABLET PO SCH (09:08)
[2019-03-11] MEDS: TRIHEXYPHENIDYL HCL 5 MG TABLET PO SCH ×3 (09:09→16:52)
[2019-03-11] MEDS: NALTREXONE HCL 50 MG TABLET PO SCH (09:09)
[2019-03-11] MEDS: NICOTINE 21 MG/24 HOUR PATCH TD SCH (09:09)
[2019-03-11] MEDS: FLUTICASONE/VILANTEROL 200-25 MCG/INH INHALER [14] IH SCH (09:09)
[2019-03-11] MEDS: MAG HYDROX/AL HYDROX/SIMETH ES 30 ML SUSPENSION UDCUP PO PRN (12:39)
[2019-03-11 16:17] VITALS: BP 111/67
[2019-03-11] MEDS: DIVALPROEX SODIUM 500 MG ER TABLET PO SCH (20:09)
[2019-03-11] MEDS: SIMVASTATIN 10 MG TABLET PO SCH (20:09)
[2019-03-11] MEDS: MIRTAZAPINE 15 MG TABLET PO SCH (20:09)
[2019-03-11] MEDS ORDERED: HALOPERIDOL 10 MG TABLET PO SCH (21:00)
[2019-03-12 06:14] LABS: GLUCOMETER DEV NAME(LOC) BV2X.; GLUCOSE,POINT OF CARE 80 MG/DL (70-110)
[2019-03-12 06:18] VITALS: BP 101/61
[2019-03-12] MEDS: MetFORMIN HCL 500 MG TABLET PO SCH ×2 (06:38→16:26)
[2019-03-12 08:12] VITALS: BP 106/64
[2019-03-12] MEDS: FLUTICASONE/VILANTEROL 200-25 MCG/INH INHALER [14] IH SCH (08:36)
[2019-03-12] MEDS: NICOTINE 21 MG/24 HOUR PATCH TD SCH (08:36)
[2019-03-12] MEDS: MULTIVITAMINS WITH MINERALS, THERAPEUTIC TABLET PO SCH (08:36)
[2019-03-12] MEDS: GABAPENTIN 300 MG CAPSULE PO SCH ×4 (08:37→20:12)
[2019-03-12] MEDS: THIAMINE HCL 100 MG TABLET PO SCH ×2 (08:37→16:26)
[2019-03-12] MEDS: ASPIRIN 81 MG CHEWABLE TABLET PO SCH (08:38)
[2019-03-12] MEDS: METOPROLOL SUCCINATE 50 MG ER TABLET PO SCH (08:39)
[2019-03-12] MEDS: TRIHEXYPHENIDYL HCL 5 MG TABLET PO SCH ×3 (08:39→16:25)
[2019-03-12] MEDS: FOLIC ACID 1 MG TABLET PO SCH (08:39)
[2019-03-12] MEDS: NALTREXONE HCL 50 MG TABLET PO SCH (08:39)
[2019-03-12 16:10] VITALS: BP 116/69
[2019-03-12 16:39] LABS: GLUCOMETER DEV NAME(LOC) BV2X.; GLUCOSE,POINT OF CARE 93 MG/DL (70-110)
[2019-03-12] MEDS ORDERED: OLANZapine 5 MG RAPDIS TABLET PO PRN (17:00)
[2019-03-12 20:10] LABS: GLUCOMETER DEV NAME(LOC) BV2X.; GLUCOSE,POINT OF CARE 102 MG/DL (70-110)
[2019-03-12] MEDS: DIVALPROEX SODIUM 500 MG ER TABLET PO SCH (20:12)
[2019-03-12] MEDS: SIMVASTATIN 10 MG TABLET PO SCH (20:12)
[2019-03-12] MEDS: MIRTAZAPINE 15 MG TABLET PO SCH (20:12)
[2019-03-12] MEDS: MAG HYDROX/AL HYDROX/SIMETH ES 30 ML SUSPENSION UDCUP PO PRN (20:23)
[2019-03-12] MEDS ORDERED: OLANZapine 10 MG RAPDIS TABLET PO SCH (21:00)
[2019-03-13 05:59] LABS: GLUCOMETER DEV NAME(LOC) BV2X.; GLUCOSE,POINT OF CARE 80 MG/DL (70-110)
[2019-03-13] MEDS: MetFORMIN HCL 500 MG TABLET PO SCH ×2 (06:52→16:40)
[2019-03-13 07:14] VITALS: BP 110/63
[2019-03-13 08:23] VITALS: BP 99/69
[2019-03-13] MEDS: FOLIC ACID 1 MG TABLET PO SCH (09:55)
[2019-03-13] MEDS: NALTREXONE HCL 50 MG TABLET PO SCH (09:55)
[2019-03-13] MEDS: ASPIRIN 81 MG CHEWABLE TABLET PO SCH (09:55)
[2019-03-13] MEDS: GABAPENTIN 300 MG CAPSULE PO SCH ×4 (09:55→20:15)
[2019-03-13] MEDS: THIAMINE HCL 100 MG TABLET PO SCH ×2 (09:55→16:20)
[2019-03-13] MEDS: FLUTICASONE/VILANTEROL 200-25 MCG/INH INHALER [14] IH SCH (09:56)
[2019-03-13] MEDS: TRIHEXYPHENIDYL HCL 5 MG TABLET PO SCH ×3 (09:56→16:19)
[2019-03-13] MEDS: METOPROLOL SUCCINATE 50 MG ER TABLET PO SCH (09:57)
[2019-03-13] MEDS: MULTIVITAMINS WITH MINERALS, THERAPEUTIC TABLET PO SCH (10:10)
[2019-03-13] MEDS: NICOTINE 21 MG/24 HOUR PATCH TD SCH (10:38)
[2019-03-13] MEDS ORDERED: MIRT15 PO (15:10)
[2019-03-13] MEDS ORDERED: OLAN10TA22 PO (15:10)
[2019-03-13] MEDS ORDERED: GABA-531 PO ×2 (15:10)
[2019-03-13] MEDS ORDERED: TRIH5TAB2 PO (15:10)
[2019-03-13] MEDS ORDERED: NALT50TA PO (15:10)
[2019-03-13] MEDS ORDERED: DIVA500T52 PO (15:10)
[2019-03-13 16:13] VITALS: BP 104/66
[2019-03-13 16:45] LABS: GLUCOMETER DEV NAME(LOC) BV2X.; GLUCOSE,POINT OF CARE 106 MG/DL (70-110)
[2019-03-13] MEDS: SIMVASTATIN 10 MG TABLET PO SCH (20:13)
[2019-03-13] MEDS: MIRTAZAPINE 15 MG TABLET PO SCH (20:14)
[2019-03-13] MEDS: DIVALPROEX SODIUM 500 MG ER TABLET PO SCH (20:24)
[2019-03-13] MEDS: MAG HYDROX/AL HYDROX/SIMETH ES 30 ML SUSPENSION UDCUP PO PRN (20:57)
[2019-03-13] MEDS ORDERED: OLANZapine 10 MG RAPDIS TABLET PO SCH (21:00)
[2019-03-14 06:25] LABS: GLUCOMETER DEV NAME(LOC) BV2X.; GLUCOSE,POINT OF CARE 81 MG/DL (70-110)
[2019-03-14 06:52] VITALS: BP 110/66
[2019-03-14] MEDS: MetFORMIN HCL 500 MG TABLET PO SCH (06:52)
[2019-03-14 08:09] VITALS: BP 108/63
[2019-03-14] MEDS: THIAMINE HCL 100 MG TABLET PO SCH (08:59)
[2019-03-14] MEDS: FOLIC ACID 1 MG TABLET PO SCH (08:59)
[2019-03-14] MEDS: GABAPENTIN 300 MG CAPSULE PO SCH ×2 (08:59→12:05)
[2019-03-14] MEDS: MULTIVITAMINS WITH MINERALS, THERAPEUTIC TABLET PO SCH (08:59)
[2019-03-14] MEDS: ASPIRIN 81 MG CHEWABLE TABLET PO SCH (08:59)
[2019-03-14] MEDS: TRIHEXYPHENIDYL HCL 5 MG TABLET PO SCH ×2 (09:00→12:05)
[2019-03-14] MEDS: NICOTINE 21 MG/24 HOUR PATCH TD SCH (09:03)
[2019-03-14] MEDS: FLUTICASONE/VILANTEROL 200-25 MCG/INH INHALER [14] IH SCH (09:34)
[2019-03-14] MEDS: NALTREXONE HCL 50 MG TABLET PO SCH (09:34)
[2019-03-14] MEDS: METOPROLOL SUCCINATE 50 MG ER TABLET PO SCH (09:34)
[2019-03-14] MEDS ORDERED: OLAN7.5T2 PO (12:41)
[2019-03-14] MEDS ORDERED: GABA-531 PO (12:41)
[2019-03-14] MEDS: MAG HYDROX/AL HYDROX/SIMETH ES 30 ML SUSPENSION UDCUP PO PRN (13:26)
== END 2019-03-14 13:30 | disposition home or self-care (01) | DRG 885 ==
LOC: B3A 17:02 → B2X 03-07 19:35
PROVIDERS: ADMIT Psychiatry & Neurology Psychiatry; ATTEND Psychiatry & Neurology Psychiatry
DX: F25.9 Schizoaffective disorder, unspecified (principal); R45.851 Suicidal ideations; K21.9 Gastro-esophageal reflux disease without esophagitis; J44.9 Chronic obstructive pulmonary disease, unspecified; E11.9 Type 2 diabetes mellitus without complications; E78.5 Hyperlipidemia, unspecified; Z79.899 Other long term (current) drug therapy
CPT/HCPCS: 80173; 83036; 86592; 90732

== ENCOUNTER 2022-07-02 13:36 | Inpatient (IN) | payer MEDICARE, MEDICAID ==
[~2022-07-02] VITALS: Ht 180.3 cm; Wt 77.6 kg
[~2022-07-02 13:36] MED LIST changes: +DIVA-80 PO; -DIVA500T52 PO; +GABA-1181 PO; -HALO10 PO; +METF-1211 PO; -METF-960 PO; +MIRT-89 PO; -MIRT15 PO; +NALT50TA6 PO; +OLAN10TA22 PO; +OLAN7.5T22 PO; -PRAZ1 PO; -TRIH5TAB2 PO; +TRIH5TAB3 PO; +TRIH5TAB4 PO
[2022-07-02] MEDS ORDERED: HALOPERIDOL 5 MG TABLET PO PRN (19:15)
[2022-07-02] MEDS ORDERED: INFLUENZA VIRUS VACCINE QVS 2022-23 (6MO+)/PF 60 MCG/0.5 ML SYRINGE IM. ONE (19:45)
[2022-07-02 20:05] VITALS: BP 131/79
[2022-07-02] MEDS ORDERED: PNEUMOCOCCAL VACCINE POLYVALENT 0.5 ML VIAL [PPSV23] IM. ONE (20:15)
[2022-07-03 08:06] VITALS: BP 136/83
[2022-07-03] MEDS ORDERED: LOPERAMIDE HCL 2 MG CAPSULE PO PRN (09:00)
[2022-07-03] MEDS ORDERED: PROMETHAZINE HCL 25 MG TABLET PO PRN (09:00)
[2022-07-03] MEDS ORDERED: TUBERCULIN, PURIFIED PROTEIN DERIVATIVE 5 TU/0.1 ML SYRINGE ID ONE (09:00)
[2022-07-03] MEDS ORDERED: MAGNESIUM HYDROXIDE SUSPENSION 30 ML UDCUP PO PRN (09:00)
[2022-07-03] MEDS ORDERED: HydrOXYzine PAMOATE 50 MG CAPSULE PO PRN (09:00)
[2022-07-03] MEDS ORDERED: GuaiFENesin/D-METHORPHAN [SUGAR-FREE] 200-20MG/10 ML SYRUP UDCUP PO PRN (09:00)
[2022-07-03] MEDS: OMEGA-3/DHA/EPA/FISH OIL 1,000 MG CAPSULE PO SCH (10:04)
[2022-07-03] MEDS: FOLIC ACID 1 MG TABLET PO SCH (10:04)
[2022-07-03] MEDS: THIAMINE 100 MG TABLET PO SCH ×2 (10:04→17:10)
[2022-07-03] MEDS: MULTIVITAMINS WITH MINERALS, THERAPEUTIC TABLET PO SCH (10:04)
[2022-07-03] MEDS: GABAPENTIN 300 MG CAPSULE PO SCH ×3 (10:04→17:10)
[2022-07-03] MEDS: NALTREXONE HCL 50 MG TABLET PO SCH (10:04)
[2022-07-03] MEDS: LORazepam 2 MG TABLET PO PRN ×2 (12:29→20:24)
[2022-07-03 20:16] VITALS: BP 140/82
[2022-07-03] MEDS: PRAZOSIN HCL 1 MG CAPSULE PO SCH (20:23)
[2022-07-03] MEDS: DIVALPROEX SODIUM 500 MG ER TABLET PO SCH (20:23)
[2022-07-03] MEDS: ZOLPIDEM TARTRATE 10 MG TABLET PO PRN (20:24)
[2022-07-03] MEDS: MELATONIN 5 MG TABLET PO SCH (20:24)
[2022-07-03] MEDS: MIRTAZAPINE 15 MG TABLET PO SCH (20:24)
[2022-07-03] MEDS ORDERED: OLANZapine 5 MG RAPDIS TABLET PO SCH (21:00)
[2022-07-03] MEDS ORDERED: DIVALPROEX SODIUM 500 MG ER TABLET PO SCH (21:00)
[2022-07-04] MEDS: MULTIVITAMINS WITH MINERALS, THERAPEUTIC TABLET PO SCH (08:25)
[2022-07-04] MEDS: GABAPENTIN 300 MG CAPSULE PO SCH ×3 (08:25→17:14)
[2022-07-04] MEDS: THIAMINE 100 MG TABLET PO SCH ×2 (08:25→17:14)
[2022-07-04] MEDS: FOLIC ACID 1 MG TABLET PO SCH (08:25)
[2022-07-04] MEDS: NALTREXONE HCL 50 MG TABLET PO SCH (08:25)
[2022-07-04] MEDS: OMEGA-3/DHA/EPA/FISH OIL 1,000 MG CAPSULE PO SCH (08:25)
[2022-07-04] MEDS: LORazepam 2 MG TABLET PO PRN ×2 (08:25→17:14)
[2022-07-04] MEDS: DIVALPROEX SODIUM 500 MG ER TABLET PO SCH (20:17)
[2022-07-04] MEDS: MELATONIN 5 MG TABLET PO SCH (20:17)
[2022-07-04] MEDS: OLANZapine 10 MG RAPDIS TABLET PO SCH (20:17)
[2022-07-04] MEDS: MIRTAZAPINE 15 MG TABLET PO SCH (20:17)
[2022-07-04] MEDS: PRAZOSIN HCL 1 MG CAPSULE PO SCH (20:17)
[2022-07-04] MEDS: MAG HYDROX/AL HYDROX/SIMETH ES 30 ML SUSPENSION UDCUP PO PRN (20:40)
[2022-07-05 08:21] VITALS: BP 145/75
[2022-07-05] MEDS: MULTIVITAMINS WITH MINERALS, THERAPEUTIC TABLET PO SCH (08:49)
[2022-07-05] MEDS: OMEGA-3/DHA/EPA/FISH OIL 1,000 MG CAPSULE PO SCH (08:49)
[2022-07-05] MEDS: LORazepam 2 MG TABLET PO PRN ×2 (08:50→16:52)
[2022-07-05] MEDS: FOLIC ACID 1 MG TABLET PO SCH (08:50)
[2022-07-05] MEDS: THIAMINE 100 MG TABLET PO SCH ×2 (08:50→16:52)
[2022-07-05] MEDS: NALTREXONE HCL 50 MG TABLET PO SCH (08:50)
[2022-07-05] MEDS: GABAPENTIN 300 MG CAPSULE PO SCH ×2 (08:50→13:15)
[2022-07-05] MEDS: GABAPENTIN 400 MG CAPSULE PO SCH (16:52)
[2022-07-05] MEDS: PRAZOSIN HCL 1 MG CAPSULE PO SCH (20:05)
[2022-07-05] MEDS: MELATONIN 5 MG TABLET PO SCH (20:05)
[2022-07-05] MEDS: DIVALPROEX SODIUM 500 MG ER TABLET PO SCH (20:05)
[2022-07-05] MEDS: OLANZapine 10 MG RAPDIS TABLET PO SCH (20:05)
[2022-07-05 20:11] VITALS: BP 130/72
[2022-07-05] MEDS ORDERED: MIRTAZAPINE 30 MG TABLET PO SCH (21:00)
[2022-07-06 08:22] VITALS: BP 148/84
[2022-07-06] MEDS: OMEGA-3/DHA/EPA/FISH OIL 1,000 MG CAPSULE PO SCH (08:37)
[2022-07-06] MEDS: MULTIVITAMINS WITH MINERALS, THERAPEUTIC TABLET PO SCH (08:37)
[2022-07-06] MEDS: FOLIC ACID 1 MG TABLET PO SCH (08:37)
[2022-07-06] MEDS: NALTREXONE HCL 50 MG TABLET PO SCH (08:37)
[2022-07-06] MEDS: GABAPENTIN 400 MG CAPSULE PO SCH ×3 (08:37→17:02)
[2022-07-06] MEDS: THIAMINE 100 MG TABLET PO SCH ×2 (08:37→17:02)
[2022-07-06] MEDS: LORazepam 2 MG TABLET PO PRN ×3 (08:37→21:50)
[2022-07-06] MEDS: MIRTAZAPINE 15 MG TABLET PO SCH (20:22)
[2022-07-06] MEDS: ZOLPIDEM TARTRATE 10 MG TABLET PO PRN (20:22)
[2022-07-06] MEDS: MELATONIN 5 MG TABLET PO SCH (20:22)
[2022-07-06] MEDS: OLANZapine 10 MG RAPDIS TABLET PO SCH (20:22)
[2022-07-06] MEDS: PRAZOSIN HCL 1 MG CAPSULE PO SCH (20:22)
[2022-07-06] MEDS: DIVALPROEX SODIUM 500 MG ER TABLET PO SCH (20:22)
[2022-07-07] MEDS: MULTIVITAMINS WITH MINERALS, THERAPEUTIC TABLET PO SCH (08:39)
[2022-07-07] MEDS: GABAPENTIN 400 MG CAPSULE PO SCH ×3 (08:39→16:27)
[2022-07-07] MEDS: FOLIC ACID 1 MG TABLET PO SCH (08:39)
[2022-07-07] MEDS: OMEGA-3/DHA/EPA/FISH OIL 1,000 MG CAPSULE PO SCH (08:39)
[2022-07-07] MEDS: THIAMINE 100 MG TABLET PO SCH ×2 (08:39→16:26)
[2022-07-07] MEDS: LORazepam 2 MG TABLET PO PRN (08:39)
[2022-07-07] MEDS: NALTREXONE HCL 50 MG TABLET PO SCH (08:39)
[2022-07-07] MEDS: MELATONIN 5 MG TABLET PO SCH (20:10)
[2022-07-07] MEDS: DIVALPROEX SODIUM 500 MG ER TABLET PO SCH (20:10)
[2022-07-07] MEDS: PRAZOSIN HCL 1 MG CAPSULE PO SCH (20:11)
[2022-07-07] MEDS: OLANZapine 10 MG RAPDIS TABLET PO SCH (20:13)
[2022-07-07] MEDS: MIRTAZAPINE 15 MG TABLET PO SCH (20:13)
[2022-07-07 20:30] VITALS: BP 135/76
[2022-07-08] MEDS: OMEGA-3/DHA/EPA/FISH OIL 1,000 MG CAPSULE PO SCH (08:35)
[2022-07-08] MEDS: FOLIC ACID 1 MG TABLET PO SCH (08:35)
[2022-07-08] MEDS: MULTIVITAMINS WITH MINERALS, THERAPEUTIC TABLET PO SCH (08:35)
[2022-07-08] MEDS: THIAMINE 100 MG TABLET PO SCH ×2 (08:35→16:10)
[2022-07-08] MEDS: GABAPENTIN 400 MG CAPSULE PO SCH ×3 (08:35→16:10)
[2022-07-08] MEDS: NALTREXONE HCL 50 MG TABLET PO SCH (08:35)
[2022-07-08 08:38] VITALS: BP 116/59
[2022-07-08 08:52] LABS: GLUCOMETER DEV NAME(LOC) POC.BV
[2022-07-08] MEDS: LORazepam 2 MG TABLET PO PRN (16:10)
[2022-07-08] MEDS: MELATONIN 5 MG TABLET PO SCH (20:12)
[2022-07-08] MEDS: DIVALPROEX SODIUM 500 MG ER TABLET PO SCH (20:12)
[2022-07-08] MEDS: OLANZapine 10 MG RAPDIS TABLET PO SCH (20:12)
[2022-07-08] MEDS: MIRTAZAPINE 15 MG TABLET PO SCH (20:12)
[2022-07-08 20:15] VITALS: BP 118/66
[2022-07-08] MEDS: PRAZOSIN HCL 1 MG CAPSULE PO SCH (20:15)
[2022-07-09 07:26] LABS: HEMOGLOBIN A1C 5.6 % (3.8-5.6)
[2022-07-09 07:57] LABS: ALANINE AMINOTRANSFERASE 11 U/L (12-78); ALBUMIN 3.1 g/dL (3.4-5.0); ALKALINE PHOSPHATASE 89 U/L (46-116); ANION GAP 4 mmol/L (8-16); ASPARTATE AMINOTRANSFERASE 11 U/L (15-37); BILIRUBIN,TOTAL 0.3 mg/dL (0.1-1.0); CALCIUM, TOTAL 9.5 mg/dL (8.8-10.5); CARBON DIOXIDE 29 mmol/L (22-29); CHLORIDE 107 mmol/L (98-107); CHOL/HDL RATIO 3.5 (4.2-7.3); CHOLESTEROL 154 mg/dL (131-200); FREE T4 (FREE THYROXINE) 0.69 ng/dL (0.76-1.46); GLUCOSE,RANDOM 91 mg/dL (70-110); HDL CHOLESTEROL 44 mg/dL (40-60); LDL CHOL (CALC.) 95 mg/dL (0-130); SODIUM SERUM 140 mmol/L (136-145); THYROID STIMULATING HORMONE 0.86 uIU/mL (0.36-3.74); TRIGLYCERIDES 75 mg/dL (15-150); UREA NITROGEN, BLOOD 20 mg/dL (7-18); VALPROIC ACID 70 mcg/mL (50-100)
[2022-07-09 07:58] LABS: GLOMERULAR FILTR. RATE CALC > 60 mL/min (>60)
[2022-07-09] MEDS: NALTREXONE HCL 50 MG TABLET PO SCH (08:14)
[2022-07-09] MEDS: OMEGA-3/DHA/EPA/FISH OIL 1,000 MG CAPSULE PO SCH (08:14)
[2022-07-09] MEDS: FOLIC ACID 1 MG TABLET PO SCH (08:14)
[2022-07-09] MEDS: MULTIVITAMINS WITH MINERALS, THERAPEUTIC TABLET PO SCH (08:14)
[2022-07-09] MEDS: GABAPENTIN 400 MG CAPSULE PO SCH ×3 (08:14→16:11)
[2022-07-09] MEDS: THIAMINE 100 MG TABLET PO SCH ×2 (08:14→16:11)
[2022-07-09 08:27] VITALS: BP 125/74
[2022-07-09] MEDS: LORazepam 2 MG TABLET PO PRN (16:11)
[2022-07-09] MEDS: DIVALPROEX SODIUM 500 MG ER TABLET PO SCH (20:18)
[2022-07-09] MEDS: OLANZapine 10 MG RAPDIS TABLET PO SCH (20:18)
[2022-07-09] MEDS: MIRTAZAPINE 15 MG TABLET PO SCH (20:18)
[2022-07-09] MEDS: MELATONIN 5 MG TABLET PO SCH (20:18)
[2022-07-09] MEDS: PRAZOSIN HCL 1 MG CAPSULE PO SCH (20:21)
[2022-07-09 20:22] VITALS: BP 122/67
[2022-07-10 05:12] VITALS: BP 127/61
[2022-07-10 08:24] VITALS: BP 108/63
[2022-07-10] MEDS: NALTREXONE HCL 50 MG TABLET PO SCH (08:48)
[2022-07-10] MEDS: THIAMINE 100 MG TABLET PO SCH ×2 (08:48→16:05)
[2022-07-10] MEDS: FOLIC ACID 1 MG TABLET PO SCH (08:48)
[2022-07-10] MEDS: OMEGA-3/DHA/EPA/FISH OIL 1,000 MG CAPSULE PO SCH (08:49)
[2022-07-10] MEDS: LORazepam 2 MG TABLET PO PRN ×2 (08:49→16:06)
[2022-07-10] MEDS: MULTIVITAMINS WITH MINERALS, THERAPEUTIC TABLET PO SCH (08:49)
[2022-07-10] MEDS: GABAPENTIN 400 MG CAPSULE PO SCH ×3 (08:49→16:05)
[2022-07-10 20:14] VITALS: BP 106/62
[2022-07-10] MEDS: MIRTAZAPINE 15 MG TABLET PO SCH (20:21)
[2022-07-10] MEDS: OLANZapine 10 MG RAPDIS TABLET PO SCH (20:21)
[2022-07-10] MEDS: MELATONIN 5 MG TABLET PO SCH (20:21)
[2022-07-10] MEDS: DIVALPROEX SODIUM 500 MG ER TABLET PO SCH (20:21)
[2022-07-10] MEDS: PRAZOSIN HCL 1 MG CAPSULE PO SCH (20:23)
[2022-07-11] MEDS: FOLIC ACID 1 MG TABLET PO SCH (08:23)
[2022-07-11] MEDS: GABAPENTIN 400 MG CAPSULE PO SCH ×3 (08:23→16:05)
[2022-07-11] MEDS: OMEGA-3/DHA/EPA/FISH OIL 1,000 MG CAPSULE PO SCH (08:23)
[2022-07-11] MEDS: MULTIVITAMINS WITH MINERALS, THERAPEUTIC TABLET PO SCH (08:23)
[2022-07-11] MEDS: NALTREXONE HCL 50 MG TABLET PO SCH (08:23)
[2022-07-11] MEDS: THIAMINE 100 MG TABLET PO SCH ×2 (08:23→16:04)
[2022-07-11 08:28] VITALS: BP 130/89
[2022-07-11] MEDS: ACETAMINOPHEN 325 MG TABLET PO PRN (16:31)
[2022-07-11] MEDS: OLANZapine 10 MG RAPDIS TABLET PO SCH (20:23)
[2022-07-11] MEDS: MIRTAZAPINE 15 MG TABLET PO SCH (20:23)
[2022-07-11 20:24] VITALS: BP 118/70
[2022-07-11] MEDS: PRAZOSIN HCL 1 MG CAPSULE PO SCH (20:24)
[2022-07-11] MEDS: DIVALPROEX SODIUM 500 MG ER TABLET PO SCH (20:24)
[2022-07-11] MEDS: MELATONIN 5 MG TABLET PO SCH (20:24)
[2022-07-12 08:12] VITALS: BP 124/67
[2022-07-12] MEDS: FOLIC ACID 1 MG TABLET PO SCH (09:09)
[2022-07-12] MEDS: OMEGA-3/DHA/EPA/FISH OIL 1,000 MG CAPSULE PO SCH (09:09)
[2022-07-12] MEDS: THIAMINE 100 MG TABLET PO SCH ×2 (09:09→16:12)
[2022-07-12] MEDS: GABAPENTIN 400 MG CAPSULE PO SCH ×3 (09:09→16:12)
[2022-07-12] MEDS: NALTREXONE HCL 50 MG TABLET PO SCH (09:09)
[2022-07-12] MEDS: LORazepam 2 MG TABLET PO PRN ×2 (09:09→16:12)
[2022-07-12] MEDS: MULTIVITAMINS WITH MINERALS, THERAPEUTIC TABLET PO SCH (09:09)
[2022-07-12] MEDS: DIVALPROEX SODIUM 500 MG ER TABLET PO SCH (20:09)
[2022-07-12] MEDS: MIRTAZAPINE 15 MG TABLET PO SCH (20:09)
[2022-07-12] MEDS: PRAZOSIN HCL 1 MG CAPSULE PO SCH (20:09)
[2022-07-12] MEDS: OLANZapine 10 MG RAPDIS TABLET PO SCH (20:10)
[2022-07-12] MEDS: MELATONIN 5 MG TABLET PO SCH (20:10)
[2022-07-12 20:35] VITALS: BP 112/64
[2022-07-13] MEDS: GABAPENTIN 400 MG CAPSULE PO SCH ×3 (08:17→16:25)
[2022-07-13] MEDS: MULTIVITAMINS WITH MINERALS, THERAPEUTIC TABLET PO SCH (08:17)
[2022-07-13] MEDS: LORazepam 2 MG TABLET PO PRN ×2 (08:17→16:26)
[2022-07-13] MEDS: NALTREXONE HCL 50 MG TABLET PO SCH (08:17)
[2022-07-13] MEDS: OMEGA-3/DHA/EPA/FISH OIL 1,000 MG CAPSULE PO SCH (08:17)
[2022-07-13 09:21] VITALS: BP 115/63
[2022-07-13] MEDS: ACETAMINOPHEN 325 MG TABLET PO PRN (11:44)
[2022-07-13 20:00] VITALS: BP 116/62
[2022-07-13] MEDS: MIRTAZAPINE 15 MG TABLET PO SCH (20:12)
[2022-07-13] MEDS: DIVALPROEX SODIUM 500 MG ER TABLET PO SCH (20:12)
[2022-07-13] MEDS: PRAZOSIN HCL 1 MG CAPSULE PO SCH (20:12)
[2022-07-13] MEDS: OLANZapine 10 MG RAPDIS TABLET PO SCH (20:12)
[2022-07-13] MEDS: MELATONIN 5 MG TABLET PO SCH (20:12)
[2022-07-13] MEDS: ZOLPIDEM TARTRATE 10 MG TABLET PO PRN (20:34)
[2022-07-14] MEDS: NALTREXONE HCL 50 MG TABLET PO SCH (08:13)
[2022-07-14] MEDS: LORazepam 2 MG TABLET PO PRN (08:13)
[2022-07-14] MEDS: OMEGA-3/DHA/EPA/FISH OIL 1,000 MG CAPSULE PO SCH (08:13)
[2022-07-14] MEDS: GABAPENTIN 400 MG CAPSULE PO SCH ×3 (08:13→17:10)
[2022-07-14] MEDS: MULTIVITAMINS WITH MINERALS, THERAPEUTIC TABLET PO SCH (08:13)
[2022-07-14 08:23] VITALS: BP 117/61
[2022-07-14 20:00] VITALS: BP 112/70
[2022-07-14] MEDS: MIRTAZAPINE 15 MG TABLET PO SCH (20:21)
[2022-07-14] MEDS: PRAZOSIN HCL 1 MG CAPSULE PO SCH (20:21)
[2022-07-14] MEDS: MELATONIN 5 MG TABLET PO SCH (20:21)
[2022-07-14] MEDS: DIVALPROEX SODIUM 500 MG ER TABLET PO SCH (20:21)
[2022-07-14] MEDS: OLANZapine 10 MG RAPDIS TABLET PO SCH (20:21)
[2022-07-15 06:26] LABS: GLUCOMETER DEV NAME(LOC) POC.BV
[2022-07-15 07:11] LABS: BASOPHILS % (AUTO) 0.5 % (0.0-2.0); EOSINOPHILS % (AUTO) 2.8 % (1.0-6.0); HEMATOCRIT 41.2 % (41-53); HEMOGLOBIN 13.7 g/dL (13.5-17.5); LYMPHOCYTES # (AUTO) 2.2 K/uL (1.0-4.8); LYMPHOCYTES % (AUTO) 30.8 % (22.0-44.0); MEAN CORPUSCULAR HEMOGLOBIN 30.6 pg (26.0-34.0); MEAN CORPUSCULAR HGB CONC 33.2 G/dL (31.0-37.0); MEAN CORPUSCULAR VOLUME 92 fL (80-100); MONOCYTES # (AUTO) 0.9 K/uL (0.1-1.0); NEUTROPHILS # (AUTO) 3.8 K/uL (1.8-7.7); NEUTROPHILS % (AUTO) 52.9 % (40.0-70.0); PLATELET COUNT (AUTO) 159 K/uL (150-450); RED BLOOD CELL COUNT(AUTO) 4.47 MIL/uL (4.50-5.90); RED CELL DISTRIBUTION WIDTH 14.4 % (11.5-14.5)
[2022-07-15] MEDS: GABAPENTIN 400 MG CAPSULE PO SCH ×3 (08:40→16:22)
[2022-07-15] MEDS: NALTREXONE HCL 50 MG TABLET PO SCH (08:40)
[2022-07-15] MEDS: MULTIVITAMINS WITH MINERALS, THERAPEUTIC TABLET PO SCH (08:40)
[2022-07-15] MEDS: LORazepam 2 MG TABLET PO PRN (08:40)
[2022-07-15] MEDS: OMEGA-3/DHA/EPA/FISH OIL 1,000 MG CAPSULE PO SCH (08:40)
[2022-07-15] MEDS: ACETAMINOPHEN 325 MG TABLET PO PRN ×2 (13:26→21:58)
[2022-07-15 20:20] VITALS: BP 114/68
[2022-07-15] MEDS: DIVALPROEX SODIUM 500 MG ER TABLET PO SCH (20:21)
[2022-07-15] MEDS: PRAZOSIN HCL 1 MG CAPSULE PO SCH (20:21)
[2022-07-15] MEDS: MIRTAZAPINE 15 MG TABLET PO SCH (20:21)
[2022-07-15] MEDS: OLANZapine 10 MG RAPDIS TABLET PO SCH (20:21)
[2022-07-15] MEDS: MELATONIN 5 MG TABLET PO SCH (20:21)
[2022-07-16] MEDS: MULTIVITAMINS WITH MINERALS, THERAPEUTIC TABLET PO SCH (08:52)
[2022-07-16] MEDS: GABAPENTIN 400 MG CAPSULE PO SCH ×3 (08:52→16:26)
[2022-07-16] MEDS: LORazepam 2 MG TABLET PO PRN ×2 (08:52→14:09)
[2022-07-16] MEDS: OMEGA-3/DHA/EPA/FISH OIL 1,000 MG CAPSULE PO SCH (08:53)
[2022-07-16] MEDS: NALTREXONE HCL 50 MG TABLET PO SCH (08:53)
[2022-07-16 19:37] VITALS: BP 120/62
[2022-07-16] MEDS: ACETAMINOPHEN 325 MG TABLET PO PRN (19:37)
[2022-07-16] MEDS: PRAZOSIN HCL 1 MG CAPSULE PO SCH (20:40)
[2022-07-16] MEDS: MELATONIN 5 MG TABLET PO SCH (20:40)
[2022-07-16] MEDS: MIRTAZAPINE 15 MG TABLET PO SCH (20:41)
[2022-07-16] MEDS: OLANZapine 10 MG RAPDIS TABLET PO SCH (20:41)
[2022-07-16] MEDS: DIVALPROEX SODIUM 500 MG ER TABLET PO SCH (20:42)
[2022-07-16 21:00] VITALS: BP 111/60
[2022-07-17 08:35] VITALS: BP 110/65
[2022-07-17] MEDS: GABAPENTIN 400 MG CAPSULE PO SCH ×3 (09:05→16:20)
[2022-07-17] MEDS: MULTIVITAMINS WITH MINERALS, THERAPEUTIC TABLET PO SCH (09:05)
[2022-07-17] MEDS: NALTREXONE HCL 50 MG TABLET PO SCH (09:05)
[2022-07-17] MEDS: OMEGA-3/DHA/EPA/FISH OIL 1,000 MG CAPSULE PO SCH (09:05)
[2022-07-17] MEDS: MAG HYDROX/AL HYDROX/SIMETH ES 30 ML SUSPENSION UDCUP PO PRN (19:36)
[2022-07-17 20:22] VITALS: BP 114/66
[2022-07-17] MEDS: MELATONIN 5 MG TABLET PO SCH (20:28)
[2022-07-17] MEDS: PRAZOSIN HCL 1 MG CAPSULE PO SCH (20:28)
[2022-07-17] MEDS: OLANZapine 10 MG RAPDIS TABLET PO SCH (20:29)
[2022-07-17] MEDS: DIVALPROEX SODIUM 500 MG ER TABLET PO SCH (20:29)
[2022-07-17] MEDS: MIRTAZAPINE 15 MG TABLET PO SCH (20:29)
[2022-07-18] MEDS: OMEGA-3/DHA/EPA/FISH OIL 1,000 MG CAPSULE PO SCH (08:25)
[2022-07-18] MEDS: GABAPENTIN 400 MG CAPSULE PO SCH ×3 (08:25→16:16)
[2022-07-18] MEDS: NALTREXONE HCL 50 MG TABLET PO SCH (08:26)
[2022-07-18] MEDS: MULTIVITAMINS WITH MINERALS, THERAPEUTIC TABLET PO SCH (08:26)
[2022-07-18] MEDS: MAG HYDROX/AL HYDROX/SIMETH ES 30 ML SUSPENSION UDCUP PO PRN ×2 (13:39→19:18)
[2022-07-18] MEDS ORDERED: DOCUSATE SODIUM 100 MG CAPSULE PO PRN (14:15)
[2022-07-18] MEDS: OLANZapine 10 MG RAPDIS TABLET PO SCH (20:18)
[2022-07-18] MEDS: MIRTAZAPINE 15 MG TABLET PO SCH (20:18)
[2022-07-18] MEDS: DIVALPROEX SODIUM 500 MG ER TABLET PO SCH (20:19)
[2022-07-18] MEDS: PRAZOSIN HCL 1 MG CAPSULE PO SCH (20:19)
[2022-07-18] MEDS: MELATONIN 5 MG TABLET PO SCH (20:20)
[2022-07-18 20:30] VITALS: BP 128/72
[2022-07-19 08:31] VITALS: BP 112/71
[2022-07-19] MEDS: NALTREXONE HCL 50 MG TABLET PO SCH (08:53)
[2022-07-19] MEDS: OMEGA-3/DHA/EPA/FISH OIL 1,000 MG CAPSULE PO SCH (08:53)
[2022-07-19] MEDS: GABAPENTIN 400 MG CAPSULE PO SCH ×3 (08:53→16:08)
[2022-07-19] MEDS: MULTIVITAMINS WITH MINERALS, THERAPEUTIC TABLET PO SCH (08:53)
[2022-07-19] MEDS: MAG HYDROX/AL HYDROX/SIMETH ES 30 ML SUSPENSION UDCUP PO PRN (14:23)
[2022-07-19 20:12] VITALS: BP 114/62
[2022-07-19] MEDS: DIVALPROEX SODIUM 500 MG ER TABLET PO SCH (20:17)
[2022-07-19] MEDS: PRAZOSIN HCL 1 MG CAPSULE PO SCH (20:18)
[2022-07-19] MEDS: MELATONIN 5 MG TABLET PO SCH (20:18)
[2022-07-19] MEDS: OLANZapine 10 MG RAPDIS TABLET PO SCH (20:18)
[2022-07-19] MEDS: MIRTAZAPINE 15 MG TABLET PO SCH (20:22)
[2022-07-20] MEDS: MULTIVITAMINS WITH MINERALS, THERAPEUTIC TABLET PO SCH (08:29)
[2022-07-20] MEDS: OMEGA-3/DHA/EPA/FISH OIL 1,000 MG CAPSULE PO SCH (08:29)
[2022-07-20] MEDS: GABAPENTIN 400 MG CAPSULE PO SCH ×3 (08:30→16:01)
[2022-07-20] MEDS: NALTREXONE HCL 50 MG TABLET PO SCH (08:30)
[2022-07-20 08:31] VITALS: BP 117/59
[2022-07-20] MEDS: MAG HYDROX/AL HYDROX/SIMETH ES 30 ML SUSPENSION UDCUP PO PRN (13:04)
[2022-07-20] MEDS: OLANZapine 10 MG RAPDIS TABLET PO SCH (20:06)
[2022-07-20] MEDS: DIVALPROEX SODIUM 500 MG ER TABLET PO SCH (20:06)
[2022-07-20] MEDS: PRAZOSIN HCL 1 MG CAPSULE PO SCH (20:06)
[2022-07-20] MEDS: MELATONIN 5 MG TABLET PO SCH (20:06)
[2022-07-20 20:29] VITALS: BP 112/62
[2022-07-20] MEDS: MIRTAZAPINE 15 MG TABLET PO SCH (20:32)
[2022-07-21] MEDS: OMEGA-3/DHA/EPA/FISH OIL 1,000 MG CAPSULE PO SCH (08:43)
[2022-07-21] MEDS: MULTIVITAMINS WITH MINERALS, THERAPEUTIC TABLET PO SCH (08:43)
[2022-07-21] MEDS: NALTREXONE HCL 50 MG TABLET PO SCH (08:43)
[2022-07-21] MEDS: GABAPENTIN 400 MG CAPSULE PO SCH ×3 (08:43→16:13)
[2022-07-21 09:34] VITALS: BP 112/64
[2022-07-21] MEDS: MAG HYDROX/AL HYDROX/SIMETH ES 30 ML SUSPENSION UDCUP PO PRN ×2 (14:09→18:41)
[2022-07-21] MEDS: MIRTAZAPINE 15 MG TABLET PO SCH (20:18)
[2022-07-21] MEDS: PRAZOSIN HCL 1 MG CAPSULE PO SCH (20:18)
[2022-07-21] MEDS: DIVALPROEX SODIUM 500 MG ER TABLET PO SCH (20:18)
[2022-07-21] MEDS: MELATONIN 5 MG TABLET PO SCH (20:18)
[2022-07-21] MEDS: OLANZapine 10 MG RAPDIS TABLET PO SCH (20:18)
[2022-07-21 21:01] VITALS: BP 114/72
[2022-07-22] MEDS: NALTREXONE HCL 50 MG TABLET PO SCH (08:45)
[2022-07-22] MEDS: GABAPENTIN 400 MG CAPSULE PO SCH ×3 (08:45→16:09)
[2022-07-22] MEDS: OMEGA-3/DHA/EPA/FISH OIL 1,000 MG CAPSULE PO SCH (08:45)
[2022-07-22] MEDS: MULTIVITAMINS WITH MINERALS, THERAPEUTIC TABLET PO SCH (08:46)
[2022-07-22 08:48] VITALS: BP 110/59
[2022-07-22] MEDS: MAG HYDROX/AL HYDROX/SIMETH ES 30 ML SUSPENSION UDCUP PO PRN ×2 (13:38→20:05)
[2022-07-22] MEDS: PRAZOSIN HCL 1 MG CAPSULE PO SCH (20:05)
[2022-07-22] MEDS: DIVALPROEX SODIUM 500 MG ER TABLET PO SCH (20:05)
[2022-07-22] MEDS: OLANZapine 10 MG RAPDIS TABLET PO SCH (20:05)
[2022-07-22] MEDS: MIRTAZAPINE 15 MG TABLET PO SCH (20:05)
[2022-07-22] MEDS: MELATONIN 5 MG TABLET PO SCH (20:32)
[2022-07-22 21:02] VITALS: BP 125/85
[2022-07-23 08:14] VITALS: BP 139/75
[2022-07-23] MEDS: NALTREXONE HCL 50 MG TABLET PO SCH (08:26)
[2022-07-23] MEDS: OMEGA-3/DHA/EPA/FISH OIL 1,000 MG CAPSULE PO SCH (08:26)
[2022-07-23] MEDS: GABAPENTIN 400 MG CAPSULE PO SCH ×3 (08:26→16:04)
[2022-07-23] MEDS: MULTIVITAMINS WITH MINERALS, THERAPEUTIC TABLET PO SCH (08:26)
[2022-07-23] MEDS: MAG HYDROX/AL HYDROX/SIMETH ES 30 ML SUSPENSION UDCUP PO PRN ×2 (11:04→19:11)
[2022-07-23] MEDS: MIRTAZAPINE 15 MG TABLET PO SCH (20:07)
[2022-07-23] MEDS: DIVALPROEX SODIUM 500 MG ER TABLET PO SCH (20:08)
[2022-07-23] MEDS: OLANZapine 10 MG RAPDIS TABLET PO SCH (20:08)
[2022-07-23] MEDS: MELATONIN 5 MG TABLET PO SCH (20:08)
[2022-07-23] MEDS: PRAZOSIN HCL 1 MG CAPSULE PO SCH (20:08)
[2022-07-23 22:14] VITALS: BP 104/70
[2022-07-24] MEDS: GABAPENTIN 400 MG CAPSULE PO SCH ×3 (08:39→16:39)
[2022-07-24] MEDS: OMEGA-3/DHA/EPA/FISH OIL 1,000 MG CAPSULE PO SCH (08:39)
[2022-07-24] MEDS: NALTREXONE HCL 50 MG TABLET PO SCH (08:39)
[2022-07-24] MEDS: MULTIVITAMINS WITH MINERALS, THERAPEUTIC TABLET PO SCH (08:39)
[2022-07-24 09:19] VITALS: BP 115/66
[2022-07-24] MEDS ORDERED: BISACODYL 5 MG EC TABLET PO PRN (14:00)
[2022-07-24] MEDS: MAG HYDROX/AL HYDROX/SIMETH ES 30 ML SUSPENSION UDCUP PO PRN ×2 (14:06→19:21)
[2022-07-24] MEDS: OLANZapine 10 MG RAPDIS TABLET PO SCH (20:16)
[2022-07-24] MEDS: DIVALPROEX SODIUM 500 MG ER TABLET PO SCH (20:16)
[2022-07-24] MEDS: PRAZOSIN HCL 1 MG CAPSULE PO SCH (20:16)
[2022-07-24] MEDS: MELATONIN 5 MG TABLET PO SCH (20:17)
[2022-07-24] MEDS: MIRTAZAPINE 15 MG TABLET PO SCH (20:17)
[2022-07-24 20:35] VITALS: BP 117/66
[2022-07-25 08:15] LABS: GLUCOMETER DEV NAME(LOC) POC.BV
[2022-07-25 08:24] VITALS: BP 122/74
[2022-07-25] MEDS: OMEGA-3/DHA/EPA/FISH OIL 1,000 MG CAPSULE PO SCH (08:31)
[2022-07-25] MEDS: NALTREXONE HCL 50 MG TABLET PO SCH (08:31)
[2022-07-25] MEDS: GABAPENTIN 400 MG CAPSULE PO SCH ×3 (08:31→16:04)
[2022-07-25] MEDS: MULTIVITAMINS WITH MINERALS, THERAPEUTIC TABLET PO SCH (08:31)
[2022-07-25] MEDS: OMEPRAZOLE 20 MG CAPSULE PO SCH (11:58)
[2022-07-25] MEDS: DIVALPROEX SODIUM 500 MG ER TABLET PO SCH (20:08)
[2022-07-25] MEDS: OLANZapine 10 MG RAPDIS TABLET PO SCH (20:08)
[2022-07-25] MEDS: MIRTAZAPINE 15 MG TABLET PO SCH (20:08)
[2022-07-25] MEDS: PRAZOSIN HCL 1 MG CAPSULE PO SCH (20:08)
[2022-07-25] MEDS: MELATONIN 5 MG TABLET PO SCH (20:08)
[2022-07-25 20:17] VITALS: BP 112/63
[2022-07-26] MEDS: OMEPRAZOLE 20 MG CAPSULE PO SCH (08:56)
[2022-07-26] MEDS: GABAPENTIN 400 MG CAPSULE PO SCH ×3 (08:56→16:11)
[2022-07-26] MEDS: OMEGA-3/DHA/EPA/FISH OIL 1,000 MG CAPSULE PO SCH (08:56)
[2022-07-26] MEDS: NALTREXONE HCL 50 MG TABLET PO SCH (08:58)
[2022-07-26] MEDS: MULTIVITAMINS WITH MINERALS, THERAPEUTIC TABLET PO SCH (08:59)
[2022-07-26 11:02] VITALS: BP 112/60
[2022-07-26] MEDS: OLANZapine 10 MG RAPDIS TABLET PO SCH (20:14)
[2022-07-26] MEDS: MIRTAZAPINE 15 MG TABLET PO SCH (20:16)
[2022-07-26] MEDS: MELATONIN 5 MG TABLET PO SCH (20:16)
[2022-07-26] MEDS: PRAZOSIN HCL 1 MG CAPSULE PO SCH (20:16)
[2022-07-26] MEDS: DIVALPROEX SODIUM 500 MG ER TABLET PO SCH (20:16)
[2022-07-26 20:44] VITALS: BP 117/72
[2022-07-27 07:16] LABS: HEMOGLOBIN A1C 5.8 % (3.8-5.6)
[2022-07-27 07:27] LABS: ALANINE AMINOTRANSFERASE 23 U/L (12-78); ALBUMIN 3.4 g/dL (3.4-5.0); ALKALINE PHOSPHATASE 78 U/L (46-116); ANION GAP 5 mmol/L (8-16); ASPARTATE AMINOTRANSFERASE 23 U/L (15-37); BILIRUBIN,TOTAL 0.3 mg/dL (0.1-1.0); CALCIUM, TOTAL 9.1 mg/dL (8.8-10.5); CARBON DIOXIDE 31 mmol/L (22-29); CHLORIDE 105 mmol/L (98-107); CREATININE 0.78 mg/dL (0.60-1.30); GLUCOSE,RANDOM 88 mg/dL (70-110); POTASSIUM 4.2 mmol/L (3.5-5.1); SODIUM SERUM 141 mmol/L (136-145); TOTAL PROTEIN, SERUM 6.4 g/dL (6.4-8.2); UREA NITROGEN, BLOOD 17 mg/dL (7-18)
[2022-07-27 07:31] LABS: GLOMERULAR FILTR. RATE CALC > 60 mL/min (>60)
[2022-07-27] MEDS: GABAPENTIN 400 MG CAPSULE PO SCH ×3 (08:28→16:44)
[2022-07-27] MEDS: NALTREXONE HCL 50 MG TABLET PO SCH (08:28)
[2022-07-27] MEDS: OMEGA-3/DHA/EPA/FISH OIL 1,000 MG CAPSULE PO SCH (08:29)
[2022-07-27] MEDS: MULTIVITAMINS WITH MINERALS, THERAPEUTIC TABLET PO SCH (08:29)
[2022-07-27] MEDS: OMEPRAZOLE 20 MG CAPSULE PO SCH (08:29)
[2022-07-27] MEDS: IBUPROFEN 600 MG TABLET PO PRN (08:30)
[2022-07-27 08:31] VITALS: BP 102/64
[2022-07-27 16:56] LABS: GLUCOMETER DEV NAME(LOC) POC.BV
[2022-07-27] MEDS: PRAZOSIN HCL 1 MG CAPSULE PO SCH (20:26)
[2022-07-27] MEDS: MELATONIN 5 MG TABLET PO SCH (20:26)
[2022-07-27] MEDS: MIRTAZAPINE 15 MG TABLET PO SCH (20:26)
[2022-07-27] MEDS: DIVALPROEX SODIUM 500 MG ER TABLET PO SCH (20:26)
[2022-07-27] MEDS: OLANZapine 10 MG RAPDIS TABLET PO SCH (20:26)
[2022-07-27 21:30] VITALS: BP 111/62
[2022-07-28] MEDS: IBUPROFEN 600 MG TABLET PO PRN ×2 (06:27→16:09)
[2022-07-28] MEDS: MULTIVITAMINS WITH MINERALS, THERAPEUTIC TABLET PO SCH (08:21)
[2022-07-28] MEDS: OMEGA-3/DHA/EPA/FISH OIL 1,000 MG CAPSULE PO SCH (08:22)
[2022-07-28] MEDS: GABAPENTIN 400 MG CAPSULE PO SCH ×3 (08:22→16:09)
[2022-07-28] MEDS: OMEPRAZOLE 20 MG CAPSULE PO SCH (08:22)
[2022-07-28] MEDS: NALTREXONE HCL 50 MG TABLET PO SCH (08:22)
[2022-07-28 10:34] VITALS: BP 104/61
[2022-07-28] MEDS: OLANZapine 10 MG RAPDIS TABLET PO SCH (20:27)
[2022-07-28] MEDS: MELATONIN 5 MG TABLET PO SCH (20:27)
[2022-07-28] MEDS: PRAZOSIN HCL 1 MG CAPSULE PO SCH (20:27)
[2022-07-28] MEDS: MIRTAZAPINE 15 MG TABLET PO SCH (20:27)
[2022-07-28] MEDS: DIVALPROEX SODIUM 500 MG ER TABLET PO SCH (20:27)
[2022-07-29 08:19] VITALS: BP 110/74
[2022-07-29] MEDS: NALTREXONE HCL 50 MG TABLET PO SCH (08:19)
[2022-07-29] MEDS: OMEGA-3/DHA/EPA/FISH OIL 1,000 MG CAPSULE PO SCH (08:19)
[2022-07-29] MEDS: MULTIVITAMINS WITH MINERALS, THERAPEUTIC TABLET PO SCH (08:19)
[2022-07-29] MEDS: OMEPRAZOLE 20 MG CAPSULE PO SCH (08:19)
[2022-07-29] MEDS: GABAPENTIN 400 MG CAPSULE PO SCH ×3 (08:19→16:38)
[2022-07-29] MEDS: MAG HYDROX/AL HYDROX/SIMETH ES 30 ML SUSPENSION UDCUP PO PRN (16:01)
[2022-07-29] MEDS: MIRTAZAPINE 15 MG TABLET PO SCH (20:10)
[2022-07-29] MEDS: OLANZapine 10 MG RAPDIS TABLET PO SCH (20:10)
[2022-07-29] MEDS: PRAZOSIN HCL 1 MG CAPSULE PO SCH (20:10)
[2022-07-29] MEDS: DIVALPROEX SODIUM 500 MG ER TABLET PO SCH (20:10)
[2022-07-29] MEDS: MELATONIN 5 MG TABLET PO SCH (20:10)
[2022-07-29 20:39] VITALS: BP 120/70
[2022-07-30 08:13] VITALS: BP 108/63
[2022-07-30] MEDS: MULTIVITAMINS WITH MINERALS, THERAPEUTIC TABLET PO SCH (08:24)
[2022-07-30] MEDS: OMEPRAZOLE 20 MG CAPSULE PO SCH (08:24)
[2022-07-30] MEDS: OMEGA-3/DHA/EPA/FISH OIL 1,000 MG CAPSULE PO SCH (08:24)
[2022-07-30] MEDS: NALTREXONE HCL 50 MG TABLET PO SCH (08:25)
[2022-07-30] MEDS: GABAPENTIN 400 MG CAPSULE PO SCH ×3 (08:25→16:29)
[2022-07-30] MEDS ORDERED: PRAZ1 PO (10:58)
[2022-07-30] MEDS ORDERED: DIVA-80 PO (10:58)
[2022-07-30] MEDS ORDERED: OLAN10TA26 PO (10:58)
[2022-07-30] MEDS ORDERED: NALT50TA6 PO (10:58)
[2022-07-30] MEDS ORDERED: GABA-1201 PO (11:00)
[2022-07-30 16:15] VITALS: BP 110/73
[2022-07-30] MEDS: IBUPROFEN 600 MG TABLET PO PRN (16:19)
[2022-07-30] MEDS: OLANZapine 10 MG RAPDIS TABLET PO SCH (20:34)
[2022-07-30] MEDS: PRAZOSIN HCL 1 MG CAPSULE PO SCH (20:35)
[2022-07-30] MEDS: MIRTAZAPINE 15 MG TABLET PO SCH (20:35)
[2022-07-30] MEDS: DIVALPROEX SODIUM 500 MG ER TABLET PO SCH (20:35)
[2022-07-30] MEDS: MELATONIN 5 MG TABLET PO SCH (20:36)
[2022-07-30 21:31] VITALS: BP 109/73
[2022-07-31] MEDS: OMEPRAZOLE 20 MG CAPSULE PO SCH (08:22)
[2022-07-31] MEDS: GABAPENTIN 400 MG CAPSULE PO SCH ×3 (08:22→16:25)
[2022-07-31] MEDS: OMEGA-3/DHA/EPA/FISH OIL 1,000 MG CAPSULE PO SCH (08:22)
[2022-07-31] MEDS: MULTIVITAMINS WITH MINERALS, THERAPEUTIC TABLET PO SCH (08:22)
[2022-07-31] MEDS: NALTREXONE HCL 50 MG TABLET PO SCH (08:22)
[2022-07-31 08:47] VITALS: BP 121/76
[2022-07-31] MEDS: IBUPROFEN 600 MG TABLET PO PRN (16:25)
[2022-07-31] MEDS: LORazepam 2 MG TABLET PO PRN (16:26)
[2022-07-31 20:18] VITALS: BP 112/62
[2022-07-31] MEDS: OLANZapine 10 MG RAPDIS TABLET PO SCH (20:25)
[2022-07-31] MEDS: ZOLPIDEM TARTRATE 10 MG TABLET PO PRN (20:26)
[2022-07-31] MEDS: MIRTAZAPINE 15 MG TABLET PO SCH (20:26)
[2022-07-31] MEDS: MELATONIN 5 MG TABLET PO SCH (20:26)
[2022-07-31] MEDS: PRAZOSIN HCL 1 MG CAPSULE PO SCH (20:26)
[2022-07-31] MEDS: DIVALPROEX SODIUM 500 MG ER TABLET PO SCH (20:26)
[2022-08-01] MEDS: OMEGA-3/DHA/EPA/FISH OIL 1,000 MG CAPSULE PO SCH (09:40)
[2022-08-01] MEDS: OMEPRAZOLE 20 MG CAPSULE PO SCH (09:40)
[2022-08-01] MEDS: MULTIVITAMINS WITH MINERALS, THERAPEUTIC TABLET PO SCH (09:40)
[2022-08-01] MEDS: GABAPENTIN 400 MG CAPSULE PO SCH ×3 (09:40→16:09)
[2022-08-01] MEDS: NALTREXONE HCL 50 MG TABLET PO SCH (09:40)
[2022-08-01 14:39] VITALS: BP 120/76
[2022-08-01] MEDS: IBUPROFEN 600 MG TABLET PO PRN (16:09)
[2022-08-01] MEDS: LORazepam 2 MG TABLET PO PRN (16:09)
[2022-08-01 20:19] VITALS: BP 126/68
[2022-08-01] MEDS: PRAZOSIN HCL 1 MG CAPSULE PO SCH (20:24)
[2022-08-01] MEDS: DIVALPROEX SODIUM 500 MG ER TABLET PO SCH (20:24)
[2022-08-01] MEDS: OLANZapine 10 MG RAPDIS TABLET PO SCH (20:24)
[2022-08-01] MEDS: MIRTAZAPINE 15 MG TABLET PO SCH (20:25)
[2022-08-01] MEDS: ZOLPIDEM TARTRATE 10 MG TABLET PO PRN (20:25)
[2022-08-01] MEDS: MELATONIN 5 MG TABLET PO SCH (20:25)
[2022-08-02] MEDS: MULTIVITAMINS WITH MINERALS, THERAPEUTIC TABLET PO SCH (08:15)
[2022-08-02] MEDS: GABAPENTIN 400 MG CAPSULE PO SCH ×3 (08:15→16:26)
[2022-08-02] MEDS: OMEGA-3/DHA/EPA/FISH OIL 1,000 MG CAPSULE PO SCH (08:15)
[2022-08-02] MEDS: NALTREXONE HCL 50 MG TABLET PO SCH (08:15)
[2022-08-02] MEDS: OMEPRAZOLE 20 MG CAPSULE PO SCH (08:15)
[2022-08-02] MEDS: IBUPROFEN 600 MG TABLET PO PRN ×2 (12:19→18:19)
[2022-08-02] MEDS: DIVALPROEX SODIUM 500 MG ER TABLET PO SCH (20:06)
[2022-08-02] MEDS: MIRTAZAPINE 15 MG TABLET PO SCH (20:06)
[2022-08-02] MEDS: MELATONIN 5 MG TABLET PO SCH (20:06)
[2022-08-02] MEDS: OLANZapine 10 MG RAPDIS TABLET PO SCH (20:06)
[2022-08-02] MEDS: PRAZOSIN HCL 1 MG CAPSULE PO SCH (20:07)
[2022-08-02] MEDS: LORazepam 2 MG TABLET PO PRN (20:07)
[2022-08-02 20:18] VITALS: BP 108/62
[2022-08-03] MEDS: NALTREXONE HCL 50 MG TABLET PO SCH (08:54)
[2022-08-03] MEDS: OMEGA-3/DHA/EPA/FISH OIL 1,000 MG CAPSULE PO SCH (08:54)
[2022-08-03] MEDS: MULTIVITAMINS WITH MINERALS, THERAPEUTIC TABLET PO SCH (08:54)
[2022-08-03] MEDS: GABAPENTIN 400 MG CAPSULE PO SCH ×3 (08:55→16:48)
[2022-08-03] MEDS: OMEPRAZOLE 20 MG CAPSULE PO SCH (08:55)
[2022-08-03 10:46] LABS: GLUCOMETER DEV NAME(LOC) POC.BV
[2022-08-03] MEDS: IBUPROFEN 600 MG TABLET PO PRN ×2 (12:41→20:07)
[2022-08-03 14:45] VITALS: BP 118/78
[2022-08-03] MEDS: LORazepam 2 MG TABLET PO PRN (16:48)
[2022-08-03] MEDS: MIRTAZAPINE 15 MG TABLET PO SCH (20:06)
[2022-08-03] MEDS: DIVALPROEX SODIUM 500 MG ER TABLET PO SCH (20:06)
[2022-08-03] MEDS: OLANZapine 10 MG RAPDIS TABLET PO SCH (20:06)
[2022-08-03] MEDS: PRAZOSIN HCL 1 MG CAPSULE PO SCH (20:06)
[2022-08-03] MEDS: ZOLPIDEM TARTRATE 10 MG TABLET PO PRN (20:06)
[2022-08-03] MEDS: MELATONIN 5 MG TABLET PO SCH (20:06)
[2022-08-03 20:07] VITALS: BP 118/64
[2022-08-04] MEDS: NALTREXONE HCL 50 MG TABLET PO SCH (09:23)
[2022-08-04] MEDS: GABAPENTIN 400 MG CAPSULE PO SCH ×3 (09:23→17:05)
[2022-08-04] MEDS: MULTIVITAMINS WITH MINERALS, THERAPEUTIC TABLET PO SCH (09:23)
[2022-08-04] MEDS: OMEPRAZOLE 20 MG CAPSULE PO SCH (09:23)
[2022-08-04] MEDS: OMEGA-3/DHA/EPA/FISH OIL 1,000 MG CAPSULE PO SCH (09:23)
[2022-08-04 09:31] VITALS: BP 102/60
[2022-08-04] MEDS ORDERED: TUBERCULIN, PURIFIED PROTEIN DERIVATIVE 5 TU/0.1 ML SYRINGE ID ONE (12:15)
[2022-08-04] MEDS: ACETAMINOPHEN 325 MG TABLET PO PRN (12:15)
[2022-08-04] MEDS: MELATONIN 5 MG TABLET PO SCH (20:08)
[2022-08-04] MEDS: DIVALPROEX SODIUM 500 MG ER TABLET PO SCH (20:08)
[2022-08-04] MEDS: PRAZOSIN HCL 1 MG CAPSULE PO SCH (20:08)
[2022-08-04] MEDS: OLANZapine 10 MG RAPDIS TABLET PO SCH (20:08)
[2022-08-04] MEDS: MIRTAZAPINE 15 MG TABLET PO SCH ×2 (20:08→20:30)
[2022-08-04] MEDS: ZOLPIDEM TARTRATE 10 MG TABLET PO PRN (20:31)
[2022-08-04 21:45] VITALS: BP 115/71
[2022-08-05 08:10] VITALS: BP 125/69
[2022-08-05] MEDS: OMEGA-3/DHA/EPA/FISH OIL 1,000 MG CAPSULE PO SCH (09:03)
[2022-08-05] MEDS: MULTIVITAMINS WITH MINERALS, THERAPEUTIC TABLET PO SCH (09:03)
[2022-08-05] MEDS: OMEPRAZOLE 20 MG CAPSULE PO SCH (09:03)
[2022-08-05] MEDS: NALTREXONE HCL 50 MG TABLET PO SCH (09:03)
[2022-08-05] MEDS: GABAPENTIN 400 MG CAPSULE PO SCH ×3 (09:03→16:01)
[2022-08-05] MEDS: ACETAMINOPHEN 325 MG TABLET PO PRN ×2 (11:50→18:06)
[2022-08-05] MEDS: MAG HYDROX/AL HYDROX/SIMETH ES 30 ML SUSPENSION UDCUP PO PRN (19:56)
[2022-08-05] MEDS: OLANZapine 10 MG RAPDIS TABLET PO SCH (20:25)
[2022-08-05] MEDS: MIRTAZAPINE 15 MG TABLET PO SCH (20:25)
[2022-08-05] MEDS: MELATONIN 5 MG TABLET PO SCH (20:26)
[2022-08-05] MEDS: DIVALPROEX SODIUM 500 MG ER TABLET PO SCH (20:26)
[2022-08-05] MEDS: PRAZOSIN HCL 1 MG CAPSULE PO SCH (20:26)
[2022-08-05 21:04] VITALS: BP 111/66
[2022-08-06] MEDS: OMEPRAZOLE 20 MG CAPSULE PO SCH (08:25)
[2022-08-06] MEDS: GABAPENTIN 400 MG CAPSULE PO SCH ×3 (08:25→16:32)
[2022-08-06] MEDS: ACETAMINOPHEN 325 MG TABLET PO PRN (08:25)
[2022-08-06] MEDS: MULTIVITAMINS WITH MINERALS, THERAPEUTIC TABLET PO SCH (08:26)
[2022-08-06] MEDS: OMEGA-3/DHA/EPA/FISH OIL 1,000 MG CAPSULE PO SCH (08:26)
[2022-08-06] MEDS: NALTREXONE HCL 50 MG TABLET PO SCH (08:26)
[2022-08-06 09:08] VITALS: BP 112/64
[2022-08-06] MEDS ORDERED: ESZOPICLONE 3 MG TABLET PO PRN (10:00)
[2022-08-06] MEDS: OLANZapine 5 MG RAPDIS TABLET PO PRN (12:08)
[2022-08-06 20:02] VITALS: BP 114/71
[2022-08-06] MEDS: GABAPENTIN 300 MG CAPSULE PO PRN (20:13)
[2022-08-06] MEDS: DIVALPROEX SODIUM 500 MG ER TABLET PO SCH (20:29)
[2022-08-06] MEDS: MELATONIN 5 MG TABLET PO SCH (20:29)
[2022-08-06] MEDS: MIRTAZAPINE 15 MG TABLET PO SCH (20:29)
[2022-08-06] MEDS: PRAZOSIN HCL 1 MG CAPSULE PO SCH (20:29)
[2022-08-06] MEDS: OLANZapine 10 MG RAPDIS TABLET PO SCH (20:29)
[2022-08-07] MEDS: OMEGA-3/DHA/EPA/FISH OIL 1,000 MG CAPSULE PO SCH (08:50)
[2022-08-07] MEDS: GABAPENTIN 400 MG CAPSULE PO SCH ×3 (08:50→16:05)
[2022-08-07] MEDS: MULTIVITAMINS WITH MINERALS, THERAPEUTIC TABLET PO SCH (08:50)
[2022-08-07] MEDS: OMEPRAZOLE 20 MG CAPSULE PO SCH (08:50)
[2022-08-07] MEDS: NALTREXONE HCL 50 MG TABLET PO SCH (09:29)
[2022-08-07] MEDS: GABAPENTIN 300 MG CAPSULE PO PRN ×2 (12:58→16:59)
[2022-08-07] MEDS: OLANZapine 5 MG RAPDIS TABLET PO PRN (15:47)
[2022-08-07 20:17] VITALS: BP 110/64
[2022-08-07] MEDS: PRAZOSIN HCL 1 MG CAPSULE PO SCH (20:28)
[2022-08-07] MEDS: DIVALPROEX SODIUM 500 MG ER TABLET PO SCH (20:28)
[2022-08-07] MEDS: MIRTAZAPINE 15 MG TABLET PO SCH (20:28)
[2022-08-07] MEDS: OLANZapine 10 MG RAPDIS TABLET PO SCH (20:28)
[2022-08-07] MEDS: MELATONIN 5 MG TABLET PO SCH (20:28)
[2022-08-08] MEDS: NALTREXONE HCL 50 MG TABLET PO SCH (08:06)
[2022-08-08] MEDS: GABAPENTIN 400 MG CAPSULE PO SCH ×3 (08:06→16:22)
[2022-08-08] MEDS: OMEGA-3/DHA/EPA/FISH OIL 1,000 MG CAPSULE PO SCH (08:06)
[2022-08-08] MEDS: OMEPRAZOLE 20 MG CAPSULE PO SCH (08:06)
[2022-08-08] MEDS: MULTIVITAMINS WITH MINERALS, THERAPEUTIC TABLET PO SCH (08:07)
[2022-08-08 08:11] VITALS: BP 140/82
[2022-08-08] MEDS: OLANZapine 5 MG RAPDIS TABLET PO PRN (12:28)
[2022-08-08] MEDS: OLANZapine 10 MG RAPDIS TABLET PO SCH (20:10)
[2022-08-08] MEDS: MIRTAZAPINE 15 MG TABLET PO SCH (20:10)
[2022-08-08] MEDS: DIVALPROEX SODIUM 500 MG ER TABLET PO SCH (20:11)
[2022-08-08] MEDS: MELATONIN 5 MG TABLET PO SCH (20:13)
[2022-08-08] MEDS: PRAZOSIN HCL 1 MG CAPSULE PO SCH (20:14)
[2022-08-09 08:14] VITALS: BP 144/77
[2022-08-09] MEDS: MULTIVITAMINS WITH MINERALS, THERAPEUTIC TABLET PO SCH (08:18)
[2022-08-09] MEDS: OMEGA-3/DHA/EPA/FISH OIL 1,000 MG CAPSULE PO SCH (08:18)
[2022-08-09] MEDS: OLANZapine 5 MG RAPDIS TABLET PO PRN ×3 (08:18→23:53)
[2022-08-09] MEDS: GABAPENTIN 400 MG CAPSULE PO SCH ×3 (08:18→16:38)
[2022-08-09] MEDS: NALTREXONE HCL 50 MG TABLET PO SCH (08:18)
[2022-08-09] MEDS: OMEPRAZOLE 20 MG CAPSULE PO SCH (08:18)
[2022-08-09] MEDS: GABAPENTIN 300 MG CAPSULE PO PRN (15:59)
[2022-08-09] MEDS ORDERED: BISMUTH SUBSALICYLATE 262 MG CHEWABLE TABLET CHEW PRN (16:00)
[2022-08-09 20:00] VITALS: BP 128/86
[2022-08-09] MEDS: PRAZOSIN HCL 1 MG CAPSULE PO SCH (20:12)
[2022-08-09] MEDS: OLANZapine 10 MG RAPDIS TABLET PO SCH (20:12)
[2022-08-09] MEDS: MIRTAZAPINE 15 MG TABLET PO SCH (20:12)
[2022-08-09] MEDS: MELATONIN 5 MG TABLET PO SCH (20:12)
[2022-08-09] MEDS: DIVALPROEX SODIUM 500 MG ER TABLET PO SCH (20:12)
[2022-08-09] MEDS: IBUPROFEN 600 MG TABLET PO PRN (21:15)
[2022-08-10] MEDS: MULTIVITAMINS WITH MINERALS, THERAPEUTIC TABLET PO SCH (08:17)
[2022-08-10] MEDS: OMEPRAZOLE 20 MG CAPSULE PO SCH (08:17)
[2022-08-10] MEDS: OLANZapine 5 MG RAPDIS TABLET PO PRN (08:17)
[2022-08-10] MEDS: GABAPENTIN 400 MG CAPSULE PO SCH ×3 (08:17→18:05)
[2022-08-10] MEDS: OMEGA-3/DHA/EPA/FISH OIL 1,000 MG CAPSULE PO SCH (08:17)
[2022-08-10] MEDS: NALTREXONE HCL 50 MG TABLET PO SCH (08:17)
[2022-08-10 09:57] VITALS: BP 115/75
[2022-08-10 10:27] LABS: GLUCOMETER DEV NAME(LOC) POC.BV
[2022-08-10] MEDS ORDERED: PRAZ1 PO (12:03)
[2022-08-10] MEDS ORDERED: NALT50TA PO (12:03)
[2022-08-10] MEDS ORDERED: MIRT-89 PO (12:03)
[2022-08-10] MEDS ORDERED: OMEG-135 PO (12:03)
[2022-08-10] MEDS ORDERED: GABA-1201 PO (12:03)
[2022-08-10] MEDS ORDERED: DIVA-80 PO (12:03)
[2022-08-10] MEDS ORDERED: OLAN10TA26 PO (12:03)
[2022-08-10] MEDS ORDERED: MELA5TAB40 PO (12:03)
[2022-08-10] MEDS: MAG HYDROX/AL HYDROX/SIMETH ES 30 ML SUSPENSION UDCUP PO PRN (18:38)
[2022-08-10 20:18] VITALS: BP 140/78
[2022-08-10] MEDS: PRAZOSIN HCL 1 MG CAPSULE PO SCH (20:23)
[2022-08-10] MEDS: MELATONIN 5 MG TABLET PO SCH (20:23)
[2022-08-10] MEDS: MIRTAZAPINE 15 MG TABLET PO SCH (20:24)
[2022-08-10] MEDS: DIVALPROEX SODIUM 500 MG ER TABLET PO SCH (20:25)
[2022-08-10] MEDS ORDERED: OLANZapine 10 MG RAPDIS TABLET PO SCH (21:00)
[2022-08-11] MEDS ORDERED: OLAN10TA26 PO (08:18)
[2022-08-11] MEDS: MULTIVITAMINS WITH MINERALS, THERAPEUTIC TABLET PO SCH (08:26)
[2022-08-11] MEDS: OMEGA-3/DHA/EPA/FISH OIL 1,000 MG CAPSULE PO SCH (08:26)
[2022-08-11] MEDS: NALTREXONE HCL 50 MG TABLET PO SCH (08:26)
[2022-08-11] MEDS: OMEPRAZOLE 20 MG CAPSULE PO SCH (08:26)
[2022-08-11] MEDS: GABAPENTIN 400 MG CAPSULE PO SCH (08:27)
[2022-08-11 08:45] VITALS: BP 124/77
== END 2022-08-11 10:25 | disposition home or self-care (01) | DRG 885 ==
LOC: B3A 19:06 → B2X 08-03 22:40 → B3A 08-04 13:09
PROVIDERS: ADMIT Psychiatry & Neurology Psychiatry; ATTEND Psychiatry & Neurology Psychiatry
DX: F25.0 Schizoaffective disorder, bipolar type (principal); U07.1 COVID-19; E11.9 Type 2 diabetes mellitus without complications; E78.00 Pure hypercholesterolemia, unspecified; F17.210 Nicotine dependence, cigarettes, uncomplicated; F39 Unspecified mood [affective] disorder; F41.9 Anxiety disorder, unspecified; F60.0 Paranoid personality disorder; G47.00 Insomnia, unspecified; I10 Essential (primary) hypertension; J44.9 Chronic obstructive pulmonary disease, unspecified; K21.9 Gastro-esophageal reflux disease without esophagitis; K59.00 Constipation, unspecified; M17.0 Bilateral primary osteoarthritis of knee; Z79.899 Other long term (current) drug therapy; Z91.199 Patient's noncompliance with other medical treatment and regimen due to unspecified reason
CPT/HCPCS: 80053; 80061; 80164; 83036; 84439; 84443; 85025; 86592; 87081; Q9967